=== PATIENT | male | born 1970 | race Caucasian/White ===

== ENCOUNTER 2019-10-26 21:54 | Inpatient (IN) | payer MEDICAID ==
[~2019-10-26] VITALS: Ht 180.3 cm; Wt 118.0 kg
[2019-10-26] MEDS ORDERED: FENTANYL-0.9 % NACL/PF 100 ML IV PRN (22:12)
[2019-10-26] MEDS: normal saline 1000ml 1,000 ML IV SCH (22:37)
[2019-10-26] MEDS: midazolam 100mg in NS 100ml 100 ML IV PRN (22:38)
[2019-10-26] MEDS: propofol 1000mg/100ml bottle 100 ML IV SCH (22:38)
[2019-10-26] MEDS: FENTANYL-0.9 % NACL/PF 100 ML IV PRN (22:38)
[2019-10-26 22:41] LABS: ABG BASE EXCESS -11.5 mmol/L (-2.0-3.0); ABG HCO3 16.6 mmol/L (22.0-26.0); ABG OXYGEN SATURATION 93.1 % (95-98); ABG PCO2 (T) 44.6 mmHg (35.0-45.0); ABG PH (T) 7.186 (7.350-7.450); ABG PO2 (T) 84.2 mmHg (83-108); ALLEN'S TEST Modified; FCOHb 0.4 % (0.5-1.5); FMetHb 0.3 % (0.3-1.12); FO2Hb 92.4 % (94-100); PATIENT TEMPERATURE 36.6; PEEP 5 cm H2O; RESPIRATORY RATE 18 b/min; TIDAL VOLUME 500 mL; TOTAL HEMOGLOBIN 13.9 G/dl (14.0-17.9)
[2019-10-26] MEDS ORDERED: magnesium 2GM in 50ml NS 50 ML IV ONE (22:45)
--- NOTE | 2019-10-26 22:45 | NUR ---
pt danielle mauricio
--- NOTE | 2019-10-26 22:48 | NUR ---
bicycle repair technician at bedside
[2019-10-26 22:55] LABS: BASOPHILS % (AUTO) 0.2 % (0-1); EOSINOPHILS % (AUTO) 0 % (0-6); HEMATOCRIT 41.2 % (42.0-52.0); HEMOGLOBIN 13.7 g/dl (14.0-17.9); LYMPHOCYTES # (AUTO) 1.7 X10'3 (1.1-4.8); LYMPHOCYTES % (AUTO) 14.5 % (21-51); MEAN CORPUSCULAR HEMOGLOBIN 34.5 PG (27.0-31.0); MEAN CORPUSCULAR HGB CONC 33.2 g/dL (33.0-36.5); MEAN PLATELET VOLUME 9.3 FL (7.4-10.4); MONOCYTES # (AUTO) 0.6 X10'3 (0-0.9); NEUTROPHILS # (AUTO) 9.5 X10'3 (1.8-7.7); NEUTROPHILS % (AUTO) 80.3 % (42-75); PLATELET COUNT 102 X10'3 (140-440); RED BLOOD COUNT 3.97 X10'6 (4.70-6.10); RED CELL DISTRIBUTION WIDTH 15.6 % (11.5-14.5); WHITE BLOOD COUNT 11.8 X10'3 (4.5-11.0)
[2019-10-26 23:01] LABS: PARTIAL THROMBOPLASTIN TIME 42 SECONDS (22-32)
[2019-10-26 23:12] LABS: ALBUMIN 3.1 G/DL (3.4-5.0); ALBUMIN/GLOBULIN RATIO 1.2 (1.1-1.5); ALKALINE PHOSPHATASE 44 IU/L (46-116); ANION GAP 15 (8-16); BILIRUBIN,TOTAL 3.6 MG/DL (0.1-1.0); BLOOD UREA NITROGEN 100 MG/DL (7-18); BUN/CREATININE RATIO 20.2 (5.4-32.0); CALCIUM 7.4 MG/DL (8.5-10.1); CHLORIDE 97 MMOL/L (99-107); CREATININE 4.95 MG/DL (0.60-1.10); GLUCOSE 126 MG/DL (70-104); POTASSIUM 3.8 MMOL/L (3.5-5.1); SODIUM 135 MMOL/L (135-145); TOTAL CARBON DIOXIDE 22.7 MMOL/L (24-32); TOTAL PROTEIN 5.7 G/DL (6.4-8.2); eGFR 13 ML/MIN
[2019-10-26 23:14] LABS: ETHANOL < 0.010 GM/DL (0.0-0.010); LIPASE 79 U/L (73-393); MAGNESIUM 2.4 MG/DL (1.5-2.4)
[2019-10-26 23:23] LABS: ALANINE AMINOTRANSFERASE 2030 U/L (12-78); ASPARTATE AMINO TRANSFERASE 1959 U/L (10-37)
--- NOTE | 2019-10-26 23:23 | NUR ---
150mcg of fentanyl wasted to clear the line as it had backed up with blood.
[2019-10-26] MEDS ORDERED: NO HOME MEDS (23:45)
[2019-10-26 23:49] LABS: CLARITY,URINE CLOUDY (Clear); COLOR,URINE YELLOW (Yellow); GLUCOSE, URINE NEGATIVE (Neg); KETONES,URINE NEGATIVE (Neg); LEUKOCYTE ESTERASE ,URINE NEGATIVE (Neg); NITRITES, URINE NEGATIVE (Neg); OCCULT BLOOD,URINE LARGE (Neg); PROTEIN,URINE 100 mg/dl (Neg); UROBILINOGEN,URINE 0.2 E.U/dL (0.2-1.0)
[2019-10-26 23:55] LABS: UA COLLECTION TYPE NON-SPECIFIED
[2019-10-26 23:57] LABS: BACTERIA,URINE FEW /HPF (Neg); HYALINE CASTS 0-3 /LPF (NEGATIVE); MUCUS STRANDS FEW /LPF (Neg); RBC,URINE 20-50 /HPF (0-2); SQUAMOUS EPITHELIAL CELL,UR FEW /LPF (FEW); WBC,URINE 0-4 /HPF (0-4)
[2019-10-27] VITALS (21 sets, daily range): BP systolic 104–177; BP diastolic 71–116
[2019-10-27 00:03] LABS: ANISOCYTOSIS 1+; NUCLEATED RED BLOOD CELLS 18 /100WBC (0-0); PLATELET ESTIMATE DECREASED; TOTAL CELLS COUNTED 100
[2019-10-27 00:04] LABS: POLYCHROMASIA 1+
[2019-10-27 00:04] LABS: URINE AMPHETAMINE SCREEN NEGATIVE (Neg); URINE BARBITUATE SCREEN NEGATIVE (Neg); URINE BENZODIAZEPINES SCREEN POSITIVE (Neg); URINE CANNABINOID SCREEN POSITIVE (Neg); URINE COCAINE SCREEN NEGATIVE (Neg); URINE METHADONE SCREEN NEGATIVE (Neg); URINE OPIATE SCREEN NEGATIVE (Neg); URINE PHENCYCLIDINE SCREEN NEGATIVE (Neg)
[2019-10-27] MEDS ORDERED: FENTANYL-0.9 % NACL/PF 100 ML IV PRN (00:08)
[2019-10-27] MEDS ORDERED: midazolam 100mg in NS 100ml 100 ML IV PRN (00:08)
--- NOTE | 2019-10-27 00:08 | NUR ---
spoke to the , encouraged her to come here. She is 2 hrs away, has 3 small children 8, 5, and 2. They just moved here from [place]. Instructed her to call family and friends and see if something could be arranged. She will call me back.
[2019-10-27] MEDS: K, MAG and/or Phos replacement - Verify level? MC SCH ×2 (00:10→08:00)
[2019-10-27] MEDS ORDERED: morphine 2 MG/ML inj. syringe IV PRN (00:10)
[2019-10-27] MEDS ORDERED: magnesium hydroxide 30ml (MOM) UD suspension PO PRN (00:10)
[2019-10-27] MEDS ORDERED: potassium Cl 20 mEq SR tablet PO PRN ×2 (00:10)
[2019-10-27] MEDS ORDERED: morphine 4 MG/ML inj SYRINge IV PRN (00:10)
[2019-10-27] MEDS ORDERED: acetaminophen 325mg tablet PO PRN ×2 (00:10)
--- NOTE | 2019-10-27 00:33 | NUR ---
when I spoke to the I explained to that the MD was discussing the possibility of administering a medication called TPA and explained to her what the medicine does and the risks and benefits of the medication. She informed me to "do what you need to do, you are the professionals."
--- NOTE | 2019-10-27 00:33 | NUR ---
HER SON FROM [place] WHO IS 21 WILL BE COMING UP TOMORROW EVENING. SO SHE WONT BE ABLE TO COME UNTIL THE EVENING TOMORROW.
[2019-10-27] MEDS ORDERED: tPA-cathflo 2mg/2ml IV flush 4 MG in normal saline 100ml IV soln 100 ML ICATH SCH (00:50)
--- NOTE | 2019-10-27 00:57 | NUR ---
I spoke to the , I called her, and I put the call through to Dr Dillon
[2019-10-27 01:01] LABS: OXYGEN SATURATION (MIXED VEN) 65.7 % (60-80); PO2 MIXED VENOUS (TEMP COR) 42.1 mmHg (35-46)
[2019-10-27] MEDS: normal saline 1000ml 1,000 ML IV SCH ×4 (01:03→13:28)
--- NOTE | 2019-10-27 01:45 | NUR ---
All the venous access sites and francis site are free from any bleeding.
--- NOTE | 2019-10-27 01:57 | NUR ---
Dr Herrmann aware of troponin and LA and he will order dobutamine. He came to BS to check on the pt. Dr Herrmann made aware of no UOP, and that the TPA was started at 0130.
[2019-10-27] MEDS ORDERED: DOBUTamine-DoBUTrex 500mg/D5W 250 ML IV PRN (02:00)
--- NOTE | 2019-10-27 02:04 | NUR ---
lab called and said he ran flu swab x 2 and is now going to be sending it over to [facility].
[2019-10-27] MEDS: propofol 1000mg/100ml bottle 100 ML IV SCH (02:17)
[2019-10-27] MEDS ORDERED: adenosine 3mg/ml 2ml vial IV ONE (03:00)
--- NOTE | 2019-10-27 05:37 | NUR ---
0330..Assessment as noted.
--- NOTE | 2019-10-27 05:37 | NUR ---
0300..Patient in room CICU 2008. I have received report from PREPARED FOODS ASSOCIATE and had the opportunity to ask questions and assume patient care.
--- NOTE | 2019-10-27 05:46 | NUR ---
0345..Unable to complete pt admission interviews at this time due to pt condition, and no family present.
--- NOTE | 2019-10-27 06:25 | NUR ---
0625..Problems reprioritized. Patient report given, questions answered & plan of care reviewed with Ivan HERNANDEZ.
[2019-10-27 07:33] LABS: BASOPHILS % (AUTO) 0.1 % (0-1); EOSINOPHILS % (AUTO) 0 % (0-6); HEMATOCRIT 41.2 % (42.0-52.0); HEMOGLOBIN 13.8 g/dl (14.0-17.9); LYMPHOCYTES # (AUTO) 1.1 X10'3 (1.1-4.8); LYMPHOCYTES % (AUTO) 10.3 % (21-51); MEAN CORPUSCULAR HEMOGLOBIN 34.3 PG (27.0-31.0); MEAN CORPUSCULAR HGB CONC 33.6 g/dL (33.0-36.5); MEAN CORPUSCULAR VOLUME 102.3 FL (78-98); MONOCYTES # (AUTO) 0.5 X10'3 (0-0.9); MONOCYTES % (AUTO) 4.8 % (2-12); NEUTROPHILS # (AUTO) 9.4 X10'3 (1.8-7.7); NEUTROPHILS % (AUTO) 84.8 % (42-75); PLATELET COUNT 78 X10'3 (140-440); RED BLOOD COUNT 4.03 X10'6 (4.70-6.10); RED CELL DISTRIBUTION WIDTH 15.5 % (11.5-14.5); WHITE BLOOD COUNT 11.1 X10'3 (4.5-11.0)
--- NOTE | 2019-10-27 07:40 | NUR ---
Patient converted to afib from SR and is hypertensive 200/100. report given to Dr Kiran; orders to stop dobutamine
[2019-10-27 07:58] LABS: ANISOCYTOSIS 1+; NUCLEATED RED BLOOD CELLS 18 /100WBC (0-0); PLATELET ESTIMATE DECREASED; POLYCHROMASIA 1+; TOTAL CELLS COUNTED 100
[2019-10-27] MEDS ORDERED: rocuronium 10mg/ml inj IV ONE ×2 (08:00→15:00)
[2019-10-27 08:06] LABS: ABG BASE EXCESS -7.8 mmol/L (-2.0-3.0); ABG HCO3 16.9 mmol/L (22.0-26.0); ABG OXYGEN SATURATION 94.7 % (95-98); ABG PCO2 (T) 32.5 mmHg (35.0-45.0); ABG PH (T) 7.334 (7.350-7.450); ABG PO2 (T) 80.9 mmHg (83-108); FCOHb 0.2 % (0.5-1.5); FMetHb 0.2 % (0.3-1.12); FO2Hb 94.3 % (94-100); PEEP 5 cm H2O; RESPIRATORY RATE 22 b/min; TIDAL VOLUME 400 mL; TOTAL HEMOGLOBIN 14.6 G/dl (14.0-17.9)
[2019-10-27 08:06] LABS: ALBUMIN 3.2 G/DL (3.4-5.0); ALBUMIN/GLOBULIN RATIO 1.2 (1.1-1.5); ALKALINE PHOSPHATASE 45 IU/L (46-116); ANION GAP 17 (8-16); BILIRUBIN,TOTAL 3.5 MG/DL (0.1-1.0); BLOOD UREA NITROGEN 104 MG/DL (7-18); BUN/CREATININE RATIO 19.7 (5.4-32.0); CALCIUM 7.7 MG/DL (8.5-10.1); CHLORIDE 96 MMOL/L (99-107); CREATININE 5.29 MG/DL (0.60-1.10); GLUCOSE 88 MG/DL (70-104); POTASSIUM 3.8 MMOL/L (3.5-5.1); SODIUM 134 MMOL/L (135-145); TOTAL CARBON DIOXIDE 20.7 MMOL/L (24-32); TOTAL PROTEIN 5.8 G/DL (6.4-8.2); eGFR 12 ML/MIN
[2019-10-27 08:27] LABS: ALANINE AMINOTRANSFERASE 2306 U/L (12-78); ASPARTATE AMINO TRANSFERASE 2213 U/L (10-37)
[2019-10-27] MEDS ORDERED: carvedilol 6.25mg tablet PO SCH (08:30)
[2019-10-27] MEDS ORDERED: amLODIPine 5mg tablet PO SCH (08:30)
[2019-10-27] MEDS: pantoprazole 40 MG vial IV SCH (08:36)
[2019-10-27 08:50] LABS: TROPONIN I 8.17 NG/ML (0.0-0.05)
--- NOTE | 2019-10-27 08:51 | NUR ---
critical lab value received: Troponin of 8.17; Kayode HERNANDEZ aware.
--- NOTE | 2019-10-27 09:00 | NUR ---
Troponin trending up. Reported to
[2019-10-27] MEDS: FENTANYL-0.9 % NACL/PF 100 ML IV PRN (09:20)
[2019-10-27] MEDS ORDERED: magnesium hydroxide 30ml (MOM) UD suspension OGT PRN (11:37)
[2019-10-27] MEDS ORDERED: heparin 25,000 UNIT/250ml bag 250 ML IV SCH (11:41)
[2019-10-27] MEDS ORDERED: heparin 10,000 units/1 ML INJ IV ONE (11:45)
--- NOTE | 2019-10-27 11:59 | NUR ---
Tube feeding consult. Patient is intubated and sedated presenting to ED with cardiogenic shock, transport from [place] with bilateral pneumonia, multiple bilateral PEs, tachycardia per MD note. History of EtOH 6-8 beers per day. Using patient's adjusted IBW d/t obesity to calculate estimated nutrition needs on vent, recommend Vital High Protein at 95 ml/hr. Will continue to follow. Recommend: 1. continuous tube feeding with Vital High Protein at goal rate 95 ml/hr will provide total volume 2280 ml, 2280 cals, 200 g protein, and 1915 ml free water. 2. Any additional water flush per Machine Driller, per MD not to overload with fluids 3. Daily weight 4. Prealbumin q wednesday and Addendum: 10/27/19 at [address] Amended: Links added.
[2019-10-27 13:03] LABS: PARTIAL THROMBOPLASTIN TIME 39 SECONDS (22-32)
--- NOTE | 2019-10-27 14:01 | NUR ---
ordered labs per protocol for heparin infusion. Called MD to notify of abnormal lab values per protocol. MD confirmed to start heparin drip
[2019-10-27] MEDS: heparin 25,000 UNIT/250ml bag 250 ML IV SCH (14:15)
[2019-10-27] MEDS: midazolam 100mg in NS 100ml 100 ML IV PRN (15:25)
[2019-10-27 16:10] LABS: BASOPHILS % (AUTO) 0.2 % (0-1); EOSINOPHILS % (AUTO) 0.1 % (0-6); HEMATOCRIT 40.4 % (42.0-52.0); HEMOGLOBIN 13.7 g/dl (14.0-17.9); LYMPHOCYTES # (AUTO) 1.7 X10'3 (1.1-4.8); LYMPHOCYTES % (AUTO) 15.8 % (21-51); MEAN CORPUSCULAR HEMOGLOBIN 34.3 PG (27.0-31.0); MEAN CORPUSCULAR HGB CONC 33.8 g/dL (33.0-36.5); MEAN CORPUSCULAR VOLUME 101.5 FL (78-98); MEAN PLATELET VOLUME 8.9 FL (7.4-10.4); MONOCYTES # (AUTO) 0.4 X10'3 (0-0.9); MONOCYTES % (AUTO) 4.2 % (2-12); NEUTROPHILS # (AUTO) 8.5 X10'3 (1.8-7.7); NEUTROPHILS % (AUTO) 79.7 % (42-75); PLATELET COUNT 76 X10'3 (140-440); RED BLOOD COUNT 3.99 X10'6 (4.70-6.10); RED CELL DISTRIBUTION WIDTH 15.7 % (11.5-14.5); WHITE BLOOD COUNT 10.6 X10'3 (4.5-11.0)
[2019-10-27 16:40] LABS: ALBUMIN 2.8 G/DL (3.4-5.0); ALBUMIN/GLOBULIN RATIO 1.1 (1.1-1.5); ALKALINE PHOSPHATASE 47 IU/L (46-116); ANION GAP 15 (8-16); BILIRUBIN,TOTAL 3.6 MG/DL (0.1-1.0); BLOOD UREA NITROGEN 104 MG/DL (7-18); BUN/CREATININE RATIO 19.5 (5.4-32.0); CALCIUM 7.7 MG/DL (8.5-10.1); CHLORIDE 99 MMOL/L (99-107); CREATININE 5.32 MG/DL (0.60-1.10); GLUCOSE 85 MG/DL (70-104); MAGNESIUM 2.7 MG/DL (1.5-2.4); POTASSIUM 3.4 MMOL/L (3.5-5.1); SODIUM 135 MMOL/L (135-145); TOTAL CARBON DIOXIDE 20.8 MMOL/L (24-32); TOTAL PROTEIN 5.4 G/DL (6.4-8.2); eGFR 12 ML/MIN
[2019-10-27 16:41] LABS: ALANINE AMINOTRANSFERASE 1868 U/L (12-78); ASPARTATE AMINO TRANSFERASE 1370 U/L (10-37)
[2019-10-27 16:42] LABS: TROPONIN I 6.91 NG/ML (0.0-0.05)
--- NOTE | 2019-10-27 17:08 | NUR ---
Troponin trending down. Lab results and EKG changes reported to .
--- NOTE | 2019-10-27 17:12 | NUR ---
ABG ordered; RT notified
[2019-10-27 17:30] LABS: ABG BASE EXCESS -4.8 mmol/L (-2.0-3.0); ABG HCO3 19.7 mmol/L (22.0-26.0); ABG OXYGEN SATURATION 95.1 % (95-98); ABG PH (T) 7.368 (7.350-7.450); ABG PO2 (T) 81.6 mmHg (83-108); ALLEN'S TEST POSITIVE; FCOHb 0.4 % (0.5-1.5); FMetHb 0.2 % (0.3-1.12); FO2Hb 94.5 % (94-100); RESPIRATORY RATE 22 b/min; TIDAL VOLUME 500 mL; TOTAL HEMOGLOBIN 14.5 G/dl (14.0-17.9)
[2019-10-27] MEDS: POTASSIUM BICARB 20meq eff tab 20 MEQ TABLET.EFF OGT PRN ×2 (17:57→23:14)
--- NOTE | 2019-10-27 18:30 | NUR ---
Patient in room CICU 2008. I have received report from DOUGLAS HERNANDEZ and had the opportunity to ask questions and assume patient care.
[2019-10-27] MEDS: carvedilol 6.25mg tablet OGT SCH (20:11)
--- NOTE | 2019-10-27 22:21 | NUR ---
pt PTT came back therapeutic 55, no change to rate - remains at 1000 units. pt spontaneously started overbreathing the vent, peak pressuring, no receiving as great of volumes, desaturated to low 80s. pt was suctioned with minimal output. RT paged. seems that pt is requiring more sedation, increased dose. RT increased FiO2 to 60% for now. cont to monitor
[2019-10-28] VITALS (24 sets, daily range): BP systolic 94–122; BP diastolic 58–88
--- NOTE | 2019-10-28 01:00 | NUR ---
pt appears more comfortable on the ventilator with improved sats, RT decreased FiO2 to 40%
[2019-10-28] MEDS: mineral oil/petrolatum ophthal oint EACHEYE SCH ×4 (02:13→20:06)
[2019-10-28] MEDS: normal saline 1000ml 1,000 ML IV SCH ×2 (02:14→16:18)
[2019-10-28 02:42] LABS: BASOPHILS % (AUTO) 0.3 % (0-1); EOSINOPHILS % (AUTO) 0.5 % (0-6); HEMATOCRIT 40.4 % (42.0-52.0); HEMOGLOBIN 13.7 g/dl (14.0-17.9); LYMPHOCYTES # (AUTO) 0.9 X10'3 (1.1-4.8); LYMPHOCYTES % (AUTO) 12.5 % (21-51); MEAN CORPUSCULAR HEMOGLOBIN 34.3 PG (27.0-31.0); MEAN CORPUSCULAR HGB CONC 33.9 g/dL (33.0-36.5); MEAN CORPUSCULAR VOLUME 101.3 FL (78-98); MEAN PLATELET VOLUME 9.6 FL (7.4-10.4); MONOCYTES # (AUTO) 0.3 X10'3 (0-0.9); MONOCYTES % (AUTO) 4.5 % (2-12); NEUTROPHILS # (AUTO) 5.8 X10'3 (1.8-7.7); NEUTROPHILS % (AUTO) 82.2 % (42-75); PLATELET COUNT 73 X10'3 (140-440); RED BLOOD COUNT 3.99 X10'6 (4.70-6.10); RED CELL DISTRIBUTION WIDTH 15.4 % (11.5-14.5); WHITE BLOOD COUNT 7.1 X10'3 (4.5-11.0)
[2019-10-28 02:58] LABS: ALBUMIN 2.7 G/DL (3.4-5.0); ALBUMIN/GLOBULIN RATIO 1.1 (1.1-1.5); ALKALINE PHOSPHATASE 47 IU/L (46-116); ANION GAP 12 (8-16); ASPARTATE AMINO TRANSFERASE 821 U/L (10-37); BILIRUBIN,TOTAL 3.7 MG/DL (0.1-1.0); BLOOD UREA NITROGEN 100 MG/DL (7-18); CALCIUM 7.8 MG/DL (8.5-10.1); CHLORIDE 102 MMOL/L (99-107); CREATININE 4.77 MG/DL (0.60-1.10); GLUCOSE 86 MG/DL (70-104); MAGNESIUM 2.8 MG/DL (1.5-2.4); PHOSPHORUS 5.1 MG/DL (2.3-4.5); POTASSIUM 3.3 MMOL/L (3.5-5.1); SODIUM 138 MMOL/L (135-145); TOTAL PROTEIN 5.2 G/DL (6.4-8.2); eGFR 13 ML/MIN
[2019-10-28 02:59] LABS: ALANINE AMINOTRANSFERASE 1718 U/L (12-78)
--- NOTE | 2019-10-28 03:06 | NUR ---
cardiac PTT 50, therapeutic range. drip remains at 1000 units per hour
[2019-10-28 03:30] LABS: ANISOCYTOSIS 1+; PLATELET ESTIMATE DECREASED; POLYCHROMASIA 1+
[2019-10-28 04:06] LABS: ABG HCO3 16.4 mmol/L (22.0-26.0); ABG OXYGEN SATURATION 92.7 % (95-98); ABG PCO2 (T) 26.9 mmHg (35.0-45.0); ABG PH (T) 7.401 (7.350-7.450); ABG PO2 (T) 65.3 mmHg (83-108); ALLEN'S TEST POSITIVE; FCOHb 0.7 % (0.5-1.5); FMetHb 0.1 % (0.3-1.12); PATIENT TEMPERATURE 36.4; RESPIRATORY RATE 22 b/min; TIDAL VOLUME 500 mL; TOTAL HEMOGLOBIN 13.7 G/dl (14.0-17.9)
[2019-10-28] MEDS: FENTANYL-0.9 % NACL/PF 100 ML IV PRN (04:31)
[2019-10-28] MEDS: POTASSIUM BICARB 20meq eff tab 20 MEQ TABLET.EFF OGT PRN ×4 (04:31→20:06)
--- NOTE | 2019-10-28 05:06 | NUR ---
called Alize REDDING to report pt ST depression is showing lower on monitor, same leads as EKG showed in the afternoon. pt is already on a cardiac heparin gtt. received order for add on troponin to AM labs and AM EKG
[2019-10-28 05:31] LABS: TROPONIN I 5.06 NG/ML (0.0-0.05)
[2019-10-28] MEDS: midazolam 100mg in NS 100ml 100 ML IV PRN (05:42)
[2019-10-28] MEDS: amLODIPine 5mg tablet OGT SCH (08:00)
[2019-10-28] MEDS: carvedilol 6.25mg tablet OGT SCH ×2 (08:00→20:06)
[2019-10-28] MEDS: K, MAG and/or Phos replacement - Verify level? MC SCH (08:00)
--- NOTE | 2019-10-28 08:57 | NUR ---
Patient presenting with stoke like symptoms, flacid on right, and decorticate posturing on right arm to painful stimulation. Charge nurse notified and at bedside to assess patient with me. Sedation stopped, but patient became unstable; Peak pressuring, low volumes, rapid RR, and desaturating. Sedation restarted. Charge nurse called PA; orders for CT head. Also spoke with field operations supervisor stroke nurse who advised that this is not a stroke alert, and agreed with CT head. Family notified of changes.
[2019-10-28] MEDS: pantoprazole 40 MG vial IV SCH (10:08)
[2019-10-28] MEDS: aspirin 81mg tablet.DR PO SCH (10:11)
[2019-10-28] MEDS: heparin 10,000 units/1 ML INJ IV PRN (11:45)
[2019-10-28] MEDS: heparin 25,000 UNIT/250ml bag 250 ML IV SCH ×3 (11:47→18:31)
--- NOTE | 2019-10-28 16:18 | NUR ---
tube feed increased to 80 per orders
--- NOTE | 2019-10-28 18:30 | NUR ---
Patient in room CICU 2008. I have received report from DOUGLAS HERNANDEZ and had the opportunity to ask questions and assume patient care.
--- NOTE | 2019-10-28 18:32 | NUR ---
cardiac PTT result 71, decreased heparin gtt 1unit per protocol with cosigner
[2019-10-29] VITALS (24 sets, daily range): BP systolic 100–123; BP diastolic 54–86
--- NOTE | 2019-10-29 01:10 | NUR ---
cardiac PTT in therapeutic range, 58. no changes to rate
[2019-10-29] MEDS: POTASSIUM BICARB 20meq eff tab 20 MEQ TABLET.EFF OGT PRN ×4 (02:23→16:23)
[2019-10-29] MEDS: mineral oil/petrolatum ophthal oint EACHEYE SCH ×4 (02:23→20:45)
[2019-10-29 03:30] LABS: ABG BASE EXCESS 3.7 mmol/L (-2.0-3.0); ABG HCO3 26.1 mmol/L (22.0-26.0); ABG OXYGEN SATURATION 93.6 % (95-98); ABG PCO2 (T) 32.9 mmHg (35.0-45.0); ABG PH (T) 7.518 (7.350-7.450); ABG PO2 (T) 63.4 mmHg (83-108); ALLEN'S TEST POSITIVE; FCOHb 0.4 % (0.5-1.5); FMetHb 0.1 % (0.3-1.12); FO2Hb 93.1 % (94-100); RESPIRATORY RATE 22 b/min; TIDAL VOLUME 500 mL; TOTAL HEMOGLOBIN 14.4 G/dl (14.0-17.9)
[2019-10-29] MEDS: normal saline 1000ml 1,000 ML IV SCH ×2 (04:28→18:48)
[2019-10-29 04:39] LABS: BASOPHILS % (AUTO) 0.3 % (0-1); EOSINOPHILS % (AUTO) 0.9 % (0-6); HEMOGLOBIN 13.9 g/dl (14.0-17.9); LYMPHOCYTES # (AUTO) 0.6 X10'3 (1.1-4.8); LYMPHOCYTES % (AUTO) 9.9 % (21-51); MEAN CORPUSCULAR HEMOGLOBIN 34.3 PG (27.0-31.0); MEAN CORPUSCULAR HGB CONC 33.9 g/dL (33.0-36.5); MEAN CORPUSCULAR VOLUME 101.2 FL (78-98); MEAN PLATELET VOLUME 9.7 FL (7.4-10.4); MONOCYTES # (AUTO) 0.4 X10'3 (0-0.9); MONOCYTES % (AUTO) 7.7 % (2-12); NEUTROPHILS # (AUTO) 4.7 X10'3 (1.8-7.7); NEUTROPHILS % (AUTO) 81.2 % (42-75); PLATELET COUNT 66 X10'3 (140-440); RED BLOOD COUNT 4.05 X10'6 (4.70-6.10); RED CELL DISTRIBUTION WIDTH 15.7 % (11.5-14.5); WHITE BLOOD COUNT 5.7 X10'3 (4.5-11.0)
[2019-10-29 05:01] LABS: ALBUMIN 2.5 G/DL (3.4-5.0); ALKALINE PHOSPHATASE 62 IU/L (46-116); ANION GAP 6 (8-16); ASPARTATE AMINO TRANSFERASE 395 U/L (10-37); BLOOD UREA NITROGEN 73 MG/DL (7-18); BUN/CREATININE RATIO 24.5 (5.4-32.0); CALCIUM 8.1 MG/DL (8.5-10.1); CHLORIDE 107 MMOL/L (99-107); CREATININE 2.98 MG/DL (0.60-1.10); GLUCOSE 109 MG/DL (70-104); MAGNESIUM 2.3 MG/DL (1.5-2.4); POTASSIUM 3.2 MMOL/L (3.5-5.1); SODIUM 141 MMOL/L (135-145); TOTAL CARBON DIOXIDE 27.6 MMOL/L (24-32); eGFR 23 ML/MIN
[2019-10-29 05:03] LABS: ALANINE AMINOTRANSFERASE 1155 U/L (12-78)
--- NOTE | 2019-10-29 05:34 | NUR ---
lab called to report critical phos then called back and said there was some sort of error..waiting for further info Addendum: 10/29/19 at 0622 by Alana Garcia RN lito arreola, result is accurate now and not critical
[2019-10-29 05:46] LABS: ALBUMIN/GLOBULIN RATIO 0.8 (1.1-1.5); PHOSPHORUS 2.4 MG/DL (2.3-4.5); TOTAL PROTEIN 5.7 G/DL (6.4-8.2)
--- NOTE | 2019-10-29 06:15 | NUR ---
Problems reprioritized. Patient report given, questions answered & plan of care reviewed with JERMAINE HERNANDEZ.
[2019-10-29] MEDS: aspirin 81mg tablet.DR PO SCH (07:38)
[2019-10-29] MEDS: amLODIPine 5mg tablet OGT SCH (07:38)
[2019-10-29] MEDS: carvedilol 6.25mg tablet OGT SCH ×2 (07:38→20:44)
[2019-10-29] MEDS: K, MAG and/or Phos replacement - Verify level? MC SCH (07:39)
[2019-10-29] MEDS: pantoprazole 40 MG vial IV SCH (07:39)
[2019-10-29] MEDS: FENTANYL-0.9 % NACL/PF 100 ML IV PRN (11:57)
--- NOTE | 2019-10-29 18:20 | NUR ---
Problems reprioritized. Patient report given, questions answered & plan of care reviewed with Maribel HERNANDEZ.
--- NOTE | 2019-10-29 18:25 | NUR ---
Patient in room CICU 2008. I have received report from Liana HERNANDEZ and had the opportunity to ask questions and assume patient care. Patient in bed, intubated via endotracheal tube, on vent with Fio2 at 50% and PEEP 5, spo2 at 97%, on Fentanyl drip for pain control, Heparin drip and Normal saline infusing per provider orders, see IV spreadsheet for further information. All monitoring alarms audible. See interventions and EMR for further information. Will continue to monitor.
[2019-10-30] VITALS (23 sets, daily range): BP systolic 95–155; BP diastolic 73–102
--- NOTE | 2019-10-30 | NUR ---
Patient slightly moves right arm very minimal ROM and strength, Left arm continues with good ROM and strength.
[2019-10-30] MEDS: mineral oil/petrolatum ophthal oint EACHEYE SCH ×4 (01:36→20:37)
[2019-10-30] MEDS: heparin 10,000 units/1 ML INJ IV PRN ×2 (01:39→21:53)
[2019-10-30 03:50] LABS: ABG BASE EXCESS 3.2 mmol/L (-2.0-3.0); ABG HCO3 27.4 mmol/L (22.0-26.0); ABG OXYGEN SATURATION 95.8 % (95-98); ABG PCO2 (T) 41.3 mmHg (35.0-45.0); ABG PH (T) 7.441 (7.350-7.450); ABG PO2 (T) 78.9 mmHg (83-108); ALLEN'S TEST POSITIVE; FCOHb 0.7 % (0.5-1.5); FMetHb 0.3 % (0.3-1.12); FO2Hb 94.8 % (94-100); PATIENT TEMPERATURE 37.7
[2019-10-30] MEDS: normal saline 1000ml 1,000 ML IV SCH (03:54)
[2019-10-30 04:37] LABS: BASOPHILS % (AUTO) 0.2 % (0-1); EOSINOPHILS # (AUTO) 0.1 X10'3 (0-0.9); EOSINOPHILS % (AUTO) 1.3 % (0-6); HEMATOCRIT 40.8 % (42.0-52.0); HEMOGLOBIN 13.8 g/dl (14.0-17.9); LYMPHOCYTES # (AUTO) 0.7 X10'3 (1.1-4.8); LYMPHOCYTES % (AUTO) 11.5 % (21-51); MEAN CORPUSCULAR HEMOGLOBIN 34.5 PG (27.0-31.0); MEAN CORPUSCULAR HGB CONC 33.7 g/dL (33.0-36.5); MEAN CORPUSCULAR VOLUME 102.3 FL (78-98); MEAN PLATELET VOLUME 9.9 FL (7.4-10.4); MONOCYTES # (AUTO) 0.6 X10'3 (0-0.9); MONOCYTES % (AUTO) 10.9 % (2-12); NEUTROPHILS # (AUTO) 4.4 X10'3 (1.8-7.7); NEUTROPHILS % (AUTO) 76.1 % (42-75); PLATELET COUNT 67 X10'3 (140-440); RED BLOOD COUNT 3.99 X10'6 (4.70-6.10); RED CELL DISTRIBUTION WIDTH 16.2 % (11.5-14.5); WHITE BLOOD COUNT 5.9 X10'3 (4.5-11.0)
[2019-10-30 04:47] LABS: ALANINE AMINOTRANSFERASE 772 U/L (12-78); ALBUMIN 2.3 G/DL (3.4-5.0); ALBUMIN/GLOBULIN RATIO 0.7 (1.1-1.5); ALKALINE PHOSPHATASE 65 IU/L (46-116); ANION GAP 4 (8-16); ASPARTATE AMINO TRANSFERASE 279 U/L (10-37); BILIRUBIN,TOTAL 3.2 MG/DL (0.1-1.0); BLOOD UREA NITROGEN 54 MG/DL (7-18); BUN/CREATININE RATIO 26.6 (5.4-32.0); CALCIUM 8.2 MG/DL (8.5-10.1); CHLORIDE 111 MMOL/L (99-107); CREATININE 2.03 MG/DL (0.60-1.10); GLUCOSE 109 MG/DL (70-104); PHOSPHORUS 2.4 MG/DL (2.3-4.5); POTASSIUM 3.4 MMOL/L (3.5-5.1); PREALBUMIN 10.4 MG/DL (19-36); SODIUM 147 MMOL/L (135-145); TOTAL CARBON DIOXIDE 31.7 MMOL/L (24-32); TOTAL PROTEIN 5.4 G/DL (6.4-8.2); eGFR 35 ML/MIN
--- NOTE | 2019-10-30 06:31 | NUR ---
Student documentation: I have reviewed and agree with all interventions, assessments performed and documented by Kristine HERNANDEZ. Student Medication Administration: For this medication-pass time frame, all medication were reviewed, dispensed, administered and documented per hospital policy by Kristine HERNANDEZ.
[2019-10-30] MEDS: pantoprazole 40 MG vial IV SCH (07:38)
[2019-10-30] MEDS: carvedilol 6.25mg tablet OGT SCH ×2 (07:38→20:20)
[2019-10-30] MEDS: amLODIPine 5mg tablet OGT SCH (07:38)
[2019-10-30] MEDS: aspirin 81mg tablet.DR PO SCH (07:38)
[2019-10-30] MEDS: K, MAG and/or Phos replacement - Verify level? MC SCH (08:00)
[2019-10-30] MEDS: heparin 25,000 UNIT/250ml bag 250 ML IV SCH (08:41)
[2019-10-30] MEDS: potassium Cl 20mEq/100mL bag 100 ML IV PRN ×2 (13:06→15:12)
--- NOTE | 2019-10-30 13:39 | NUR ---
Reassessment: Patient is intubated and sedated presenting to ED with cardiogenic shock, transport from [place] with bilateral pneumonia, multiple bilateral PEs, tachycardia per MD note. History of EtOH 6-8 beers per day. Using patient's adjusted IBW d/t obesity to calculate estimated nutrition needs on vent, recommend Vital High Protein at 95 ml/hr. Tolerating at goal rate with gastric residual volume up to 310 ml, per MD patient will be started on relistor today. Last BM was smear today. May need additional bowel care if unable to have adequate BM with relistor. Noted that sodium is increasing to 147 mg/dl today, has no water flush orders, will d/w Line Painting Machine Operator. Will continue to follow. Recommend: 1. continuous tube feeding with Vital High Protein at goal rate 95 ml/hr will provide total volume 2280 ml, 2280 cals, 200 g protein, and 1915 ml free water. 2. Additional water flush per Line Painting Machine Operator, sodium increasing to 147; will d/w MD 3. Daily weight 4. Prealbumin q wednesday and 5. Bowel care for bowel regularity, pt receiving fentanyl Addendum: 10/30/19 at [address] Amended: Links added.
[2019-10-30] MEDS: midazolam 100mg in NS 100ml 100 ML IV PRN (17:43)
--- NOTE | 2019-10-30 18:00 | NUR ---
Patient in room CICU 2008. I have received report from Luisa HERNANDEZ and had the opportunity to ask questions and assume patient care. The patient is on ventilator with Fi02 of 40%, PEEP of 5, Sp02 of 97. Fentanyl drip and Versed drip infusing for pain control and sedation. Heparin drip infusing, see IV Spreadsheet for further information. Vital signs are stable. See interventions for further information, will continue to monitor.
[2019-10-30] MEDS: methylnaltrexone br 12mg/0.6ml inj***SubQ only SQ SCH (20:20)
[2019-10-30] MEDS: FENTANYL-0.9 % NACL/PF 100 ML IV PRN (21:00)
[2019-10-31] VITALS (24 sets, daily range): BP systolic 104–149; BP diastolic 64–102
[2019-10-31] MEDS: mineral oil/petrolatum ophthal oint EACHEYE SCH ×4 (02:09→19:31)
--- NOTE | 2019-10-31 02:22 | NUR ---
10/31/19221 Note on: FRED DILLARD No change in condition. Patient stable.
[2019-10-31 04:19] LABS: BASOPHILS % (AUTO) 0.4 % (0-1); EOSINOPHILS # (AUTO) 0.2 X10'3 (0-0.9); EOSINOPHILS % (AUTO) 3.2 % (0-6); HEMATOCRIT 40.4 % (42.0-52.0); HEMOGLOBIN 13.6 g/dl (14.0-17.9); LYMPHOCYTES # (AUTO) 0.7 X10'3 (1.1-4.8); LYMPHOCYTES % (AUTO) 12.1 % (21-51); MEAN CORPUSCULAR HEMOGLOBIN 34.3 PG (27.0-31.0); MEAN CORPUSCULAR HGB CONC 33.6 g/dL (33.0-36.5); MEAN CORPUSCULAR VOLUME 102.1 FL (78-98); MEAN PLATELET VOLUME 10.3 FL (7.4-10.4); MONOCYTES # (AUTO) 0.8 X10'3 (0-0.9); MONOCYTES % (AUTO) 12.7 % (2-12); NEUTROPHILS # (AUTO) 4.3 X10'3 (1.8-7.7); NEUTROPHILS % (AUTO) 71.6 % (42-75); PLATELET COUNT 78 X10'3 (140-440); RED BLOOD COUNT 3.96 X10'6 (4.70-6.10)
[2019-10-31 04:35] LABS: ALANINE AMINOTRANSFERASE 619 U/L (12-78); ALBUMIN 2.3 G/DL (3.4-5.0); ALBUMIN/GLOBULIN RATIO 0.7 (1.1-1.5); ALKALINE PHOSPHATASE 55 IU/L (46-116); ANION GAP 4 (8-16); ASPARTATE AMINO TRANSFERASE 230 U/L (10-37); BILIRUBIN,TOTAL 2.3 MG/DL (0.1-1.0); BLOOD UREA NITROGEN 46 MG/DL (7-18); BUN/CREATININE RATIO 28.2 (5.4-32.0); CALCIUM 8.4 MG/DL (8.5-10.1); CHLORIDE 112 MMOL/L (99-107); CREATININE 1.63 MG/DL (0.60-1.10); GLUCOSE 96 MG/DL (70-104); MAGNESIUM 1.8 MG/DL (1.5-2.4); PHOSPHORUS 2.5 MG/DL (2.3-4.5); POTASSIUM 3.8 MMOL/L (3.5-5.1); SODIUM 148 MMOL/L (135-145); TOTAL CARBON DIOXIDE 32.3 MMOL/L (24-32); TOTAL PROTEIN 5.5 G/DL (6.4-8.2); eGFR 46 ML/MIN
[2019-10-31] MEDS: heparin 25,000 UNIT/250ml bag 250 ML IV SCH ×2 (05:00→19:32)
[2019-10-31 05:26] LABS: ABG BASE EXCESS 4.2 mmol/L (-2.0-3.0); ABG HCO3 28.5 mmol/L (22.0-26.0); ABG OXYGEN SATURATION 94.9 % (95-98); ABG PCO2 (T) 43.2 mmHg (35.0-45.0); ABG PH (T) 7.441 (7.350-7.450); ABG PO2 (T) 75.3 mmHg (83-108); ALLEN'S TEST POSITIVE; FCOHb 1.7 % (0.5-1.5); FMetHb 0.3 % (0.3-1.12); PATIENT TEMPERATURE 37.8; RESPIRATORY RATE 22 b/min; TIDAL VOLUME 500 mL; TOTAL HEMOGLOBIN 13.9 G/dl (14.0-17.9)
--- NOTE | 2019-10-31 06:31 | NUR ---
Problems reprioritized. Patient report given, questions answered & plan of care reviewed with Art RN.
[2019-10-31] MEDS: K, MAG and/or Phos replacement - Verify level? MC SCH (07:50)
[2019-10-31] MEDS: carvedilol 6.25mg tablet OGT SCH ×2 (07:54→19:36)
[2019-10-31] MEDS: amLODIPine 5mg tablet OGT SCH (07:54)
[2019-10-31] MEDS: pantoprazole 40 MG vial IV SCH (07:54)
[2019-10-31] MEDS: aspirin 81mg tablet.DR PO SCH (07:54)
--- NOTE | 2019-10-31 10:25 | NUR ---
Blood drawn for lab, auxiliary will deliver it.
[2019-10-31] MEDS: dextrose 5%-water 1,000 ML IV SCH (11:16)
--- NOTE | 2019-10-31 14:05 | NUR ---
Reassessment: Patient is intubated and sedated presenting to ED with cardiogenic shock, transport from [place] with bilateral pneumonia, multiple bilateral PEs, tachycardia per MD note. History of EtOH 6-8 beers per day. Using patient's adjusted IBW d/t obesity to calculate estimated nutrition needs on vent, recommend Vital High Protein at 95 ml/hr. Tolerating at goal rate with gastric residual volume up to 310 ml, per MD patient started on relistor yesterday. Last BM was smear today. May need additional bowel care if unable to have adequate BM with relistor. Noted that sodium is increasing to 148 mg/dl today, water flushes were ordered yesterday for patient at 250 ml q 4 hours and has been started on 5% dextrose per MD. Will continue to follow. Recommend: 1. continuous tube feeding with Vital High Protein at goal rate 95 ml/hr will provide total volume 2280 ml, 2280 cals, 200 g protein, and 1915 ml free water. 2. Additional water flush 250 ml q 4 hours per Jewelry Repairer order 3. Daily weight 4. Prealbumin q wednesday and 5. Bowel care for bowel regularity, pt receiving fentanyl Addendum: 10/31/19 at [address] Amended: Links added.
[2019-10-31] MEDS: ipratropium/albuterol 3ml nebule NEB PRN (15:29)
[2019-10-31] MEDS ORDERED: furosemide 10 MG/1 ML 10ml inj IV ONE (16:25)
[2019-10-31] MEDS: midazolam 100mg in NS 100ml 100 ML IV PRN (16:40)
--- NOTE | 2019-10-31 18:35 | NUR ---
Patient in room CICU 2008. I have received report from and had the opportunity to ask questions and assume patient care.
[2019-10-31] MEDS: furosemide 10 MG/1 ML 10ml inj IV SCH (19:36)
[2019-11-01] VITALS (24 sets, daily range): BP systolic 106–150; BP diastolic 66–97
[2019-11-01] MEDS: mineral oil/petrolatum ophthal oint EACHEYE SCH ×4 (02:48→20:45)
[2019-11-01 03:26] LABS: ABG BASE EXCESS 5.3 mmol/L (-2.0-3.0); ABG HCO3 29.5 mmol/L (22.0-26.0); ABG OXYGEN SATURATION 92.4 % (95-98); ABG PH (T) 7.473 (7.350-7.450); ABG PO2 (T) 57.7 mmHg (83-108); ALLEN'S TEST POSITIVE; FMetHb 0.1 % (0.3-1.12); FO2Hb 91.4 % (94-100); PATIENT TEMPERATURE 36.8; TOTAL HEMOGLOBIN 14.3 G/dl (14.0-17.9)
[2019-11-01 04:28] LABS: BASOPHILS # (AUTO) 0.1 X10'3 (0-0.2); BASOPHILS % (AUTO) 0.8 % (0-1); EOSINOPHILS # (AUTO) 0.3 X10'3 (0-0.9); EOSINOPHILS % (AUTO) 4.7 % (0-6); HEMATOCRIT 41.2 % (42.0-52.0); HEMOGLOBIN 13.6 g/dl (14.0-17.9); LYMPHOCYTES # (AUTO) 0.9 X10'3 (1.1-4.8); LYMPHOCYTES % (AUTO) 14.6 % (21-51); MEAN CORPUSCULAR HEMOGLOBIN 33.9 PG (27.0-31.0); MEAN CORPUSCULAR HGB CONC 33.1 g/dL (33.0-36.5); MEAN CORPUSCULAR VOLUME 102.3 FL (78-98); MEAN PLATELET VOLUME 9.8 FL (7.4-10.4); MONOCYTES # (AUTO) 0.8 X10'3 (0-0.9); NEUTROPHILS # (AUTO) 4.1 X10'3 (1.8-7.7); NEUTROPHILS % (AUTO) 66.9 % (42-75); PLATELET COUNT 93 X10'3 (140-440); RED BLOOD COUNT 4.03 X10'6 (4.70-6.10); RED CELL DISTRIBUTION WIDTH 16.1 % (11.5-14.5); WHITE BLOOD COUNT 6.2 X10'3 (4.5-11.0)
[2019-11-01 04:43] LABS: ALANINE AMINOTRANSFERASE 469 U/L (12-78); ALBUMIN 2.3 G/DL (3.4-5.0); ALBUMIN/GLOBULIN RATIO 0.7 (1.1-1.5); ALKALINE PHOSPHATASE 54 IU/L (46-116); ANION GAP 3 (8-16); ASPARTATE AMINO TRANSFERASE 143 U/L (10-37); BLOOD UREA NITROGEN 45 MG/DL (7-18); BUN/CREATININE RATIO 26.6 (5.4-32.0); CALCIUM 8.2 MG/DL (8.5-10.1); CHLORIDE 106 MMOL/L (99-107); CREATININE 1.69 MG/DL (0.60-1.10); GLUCOSE 91 MG/DL (70-104); MAGNESIUM 1.5 MG/DL (1.5-2.4); PHOSPHORUS 2.7 MG/DL (2.3-4.5); POTASSIUM 3.2 MMOL/L (3.5-5.1); SODIUM 145 MMOL/L (135-145); TOTAL CARBON DIOXIDE 35.9 MMOL/L (24-32); TOTAL PROTEIN 5.7 G/DL (6.4-8.2); eGFR 44 ML/MIN
--- NOTE | 2019-11-01 06:35 | NUR ---
Problems reprioritized. Patient report given, questions answered & plan of care reviewed with Sally HERNANDEZ.
[2019-11-01 06:58] LABS: ANISOCYTOSIS 1+; PLATELET ESTIMATE DECREASED
[2019-11-01] MEDS: pantoprazole 40 MG vial IV SCH (07:37)
[2019-11-01] MEDS: amLODIPine 5mg tablet OGT SCH (07:38)
[2019-11-01] MEDS: aspirin 81mg tablet.DR PO SCH (07:38)
[2019-11-01] MEDS: methylnaltrexone br 12mg/0.6ml inj***SubQ only SQ SCH ×2 (07:38→08:00)
[2019-11-01] MEDS: furosemide 10 MG/1 ML 10ml inj IV SCH ×2 (07:39→20:46)
[2019-11-01] MEDS: ipratropium/albuterol 3ml nebule NEB PRN (07:55)
[2019-11-01] MEDS: potassium Cl 20mEq/100mL bag 100 ML IV PRN ×2 (07:57→10:26)
[2019-11-01] MEDS: carvedilol 6.25mg tablet OGT SCH ×2 (08:00→20:45)
[2019-11-01] MEDS: K, MAG and/or Phos replacement - Verify level? MC SCH (08:33)
[2019-11-01] MEDS: dextrose 5%-water 1,000 ML IV SCH (10:27)
[2019-11-01] MEDS: heparin 25,000 UNIT/250ml bag 250 ML IV SCH (11:40)
--- NOTE | 2019-11-01 11:57 | NUR ---
Reassessment: Pt remains intubated and sedated. Pt TF running at goal, GRV WNL as high as 350ml, per physical security manager during critical care rounds to add reglan TID. Pt is already receiving relistor, LBM NETWORK CONTRACT MANAGER. Will continue to monitor. Recommend: 1. continuous tube feeding with Vital High Protein at goal rate 95 ml/hr will provide total volume 2280 ml, 2280 cals, 200 g protein, and 1915 ml free water. 2. Additional water flush 250 ml q 4 hours per Grid Inspector order 3. Daily weight 4. Prealbumin q wednesday and 5. routine bowel care; reglan to start per MD at rounds Addendum: 11/01/19 at 1157 by Wing Cara AVERY Amended: Links added. Addendum: 11/01/19 at [address] BENNIE Tucker
[2019-11-01] MEDS ORDERED: metoclopramide 10mg tablet OGT SCH (12:00)
[2019-11-01] MEDS ORDERED: vancomycin/NS 1 GM ADD-VANTAGE 250 ML IV ONE ×2 (12:00→13:00)
[2019-11-01] MEDS: FENTANYL-0.9 % NACL/PF 100 ML IV PRN (13:06)
[2019-11-01 13:43] LABS: PARTIAL THROMBOPLASTIN TIME 38 SECONDS (22-32)
[2019-11-01] MEDS: heparin 10,000 units/1 ML INJ IV PRN (14:18)
--- NOTE | 2019-11-01 18:26 | NUR ---
Problems reprioritized. Patient report given to J Luis, questions answered & plan of care reviewed with .
--- NOTE | 2019-11-01 18:35 | NUR ---
Patient in room CICU 2008. I have received report from Sally HERNANDEZ and had the opportunity to ask questions and assume patient care.
[2019-11-01] MEDS: acetaminophen 325mg tablet OGT PRN (22:27)
[2019-11-02] VITALS (26 sets, daily range): BP systolic 106–151; BP diastolic 49–102
[2019-11-02] MEDS: heparin 25,000 UNIT/250ml bag 250 ML IV SCH ×2 (01:31→13:30)
[2019-11-02] MEDS: mineral oil/petrolatum ophthal oint EACHEYE SCH ×4 (01:33→19:32)
[2019-11-02 02:53] LABS: BASOPHILS % (AUTO) 0.7 % (0-1); EOSINOPHILS # (AUTO) 0.4 X10'3 (0-0.9); EOSINOPHILS % (AUTO) 5.1 % (0-6); HEMATOCRIT 40.3 % (42.0-52.0); HEMOGLOBIN 13.6 g/dl (14.0-17.9); LYMPHOCYTES # (AUTO) 0.8 X10'3 (1.1-4.8); LYMPHOCYTES % (AUTO) 11.9 % (21-51); MEAN CORPUSCULAR HEMOGLOBIN 34.4 PG (27.0-31.0); MEAN CORPUSCULAR HGB CONC 33.8 g/dL (33.0-36.5); MEAN CORPUSCULAR VOLUME 101.9 FL (78-98); MEAN PLATELET VOLUME 9.7 FL (7.4-10.4); MONOCYTES # (AUTO) 0.9 X10'3 (0-0.9); NEUTROPHILS # (AUTO) 4.8 X10'3 (1.8-7.7); NEUTROPHILS % (AUTO) 69.3 % (42-75); PLATELET COUNT 124 X10'3 (140-440); RED BLOOD COUNT 3.95 X10'6 (4.70-6.10); RED CELL DISTRIBUTION WIDTH 15.9 % (11.5-14.5); WHITE BLOOD COUNT 6.9 X10'3 (4.5-11.0)
[2019-11-02 03:10] LABS: ABG BASE EXCESS 8.1 mmol/L (-2.0-3.0); ABG HCO3 32.7 mmol/L (22.0-26.0); ABG OXYGEN SATURATION 94.8 % (95-98); ABG PCO2 (T) 46.7 mmHg (35.0-45.0); ABG PH (T) 7.466 (7.350-7.450); ABG PO2 (T) 72.4 mmHg (83-108); ALLEN'S TEST POSITIVE; FMetHb 0.1 % (0.3-1.12); FO2Hb 93.8 % (94-100); PATIENT TEMPERATURE 37.8; PEEP 5 cm H2O; RESPIRATORY RATE 22 b/min; TIDAL VOLUME 500 mL; TOTAL HEMOGLOBIN 14.2 G/dl (14.0-17.9)
[2019-11-02 03:10] LABS: ALANINE AMINOTRANSFERASE 323 U/L (12-78); ALBUMIN 2.3 G/DL (3.4-5.0); ALBUMIN/GLOBULIN RATIO 0.6 (1.1-1.5); ALKALINE PHOSPHATASE 56 IU/L (46-116); ANION GAP 1 (8-16); ASPARTATE AMINO TRANSFERASE 79 U/L (10-37); BILIRUBIN,TOTAL 1.9 MG/DL (0.1-1.0); BLOOD UREA NITROGEN 48 MG/DL (7-18); BUN/CREATININE RATIO 29.6 (5.4-32.0); CALCIUM 8.3 MG/DL (8.5-10.1); CHLORIDE 103 MMOL/L (99-107); CREATININE 1.62 MG/DL (0.60-1.10); GLUCOSE 89 MG/DL (70-104); MAGNESIUM 1.5 MG/DL (1.5-2.4); POTASSIUM 3.2 MMOL/L (3.5-5.1); SODIUM 140 MMOL/L (135-145); TOTAL CARBON DIOXIDE 36.3 MMOL/L (24-32); TOTAL PROTEIN 5.9 G/DL (6.4-8.2); eGFR 46 ML/MIN
[2019-11-02] MEDS: heparin 10,000 units/1 ML INJ IV PRN (03:39)
[2019-11-02] MEDS: dextrose 5%-water 1,000 ML IV SCH ×2 (03:48→23:11)
[2019-11-02] MEDS: potassium Cl 20mEq/100mL bag 100 ML IV PRN (05:47)
--- NOTE | 2019-11-02 06:35 | NUR ---
Problems reprioritized. Patient report given, questions answered & plan of care reviewed with Sally HERNANDEZ.
[2019-11-02] MEDS: K, MAG and/or Phos replacement - Verify level? MC SCH (08:00)
[2019-11-02] MEDS: carvedilol 6.25mg tablet OGT SCH ×2 (08:17→19:32)
[2019-11-02] MEDS: pantoprazole 40 MG vial IV SCH (08:17)
[2019-11-02] MEDS: amLODIPine 5mg tablet OGT SCH (08:18)
[2019-11-02] MEDS: aspirin 81mg tablet.DR PO SCH (08:18)
[2019-11-02] MEDS: furosemide 10 MG/1 ML 10ml inj IV SCH ×2 (08:19→19:33)
[2019-11-02 09:41] LABS: PARTIAL THROMBOPLASTIN TIME 61 SECONDS (22-32)
[2019-11-02] MEDS: lactulose 20gm/30ml cup PO SCH ×2 (12:02→19:32)
[2019-11-02] MEDS: FENTANYL-0.9 % NACL/PF 100 ML IV PRN (13:13)
[2019-11-02] MEDS ORDERED: furosemide 40mg/4ml inj IV ONE (14:55)
[2019-11-02] MEDS: dexmedetomidin/NS 400mcg/100ml 100 ML IV SCH ×2 (16:44→23:10)
[2019-11-02 16:47] LABS: PARTIAL THROMBOPLASTIN TIME 48 SECONDS (22-32)
--- NOTE | 2019-11-02 18:22 | NUR ---
Problems reprioritized. Patient report given to J Luis, questions answered & plan of care reviewed with .
--- NOTE | 2019-11-02 18:25 | NUR ---
Patient in room CICU 2008. I have received report from Sally HERNANDEZ and had the opportunity to ask questions and assume patient care.
[2019-11-02] MEDS: lactobacillus rhamnosus 10,000 MMU CELLS/CAPSULE PO SCH ×2 (19:32→19:35)
[2019-11-02] MEDS: ipratropium/albuterol 3ml nebule NEB PRN (21:14)
[2019-11-02 23:46] LABS: ABG BASE EXCESS 8.2 mmol/L (-2.0-3.0); ABG HCO3 30.8 mmol/L (22.0-26.0); ABG OXYGEN SATURATION 85.8 % (95-98); ABG PCO2 (T) 37.2 mmHg (35.0-45.0); ABG PH (T) 7.538 (7.350-7.450); ALLEN'S TEST POSITIVE; FCOHb 0.9 % (0.5-1.5); FMetHb 0.1 % (0.3-1.12); FO2Hb 84.9 % (94-100); PATIENT TEMPERATURE 37.8; PEEP 5 cm H2O; TIDAL VOLUME 500 mL; TOTAL HEMOGLOBIN 15.5 G/dl (14.0-17.9)
[2019-11-03] VITALS (24 sets, daily range): BP systolic 108–147; BP diastolic 74–102
[2019-11-03] MEDS ORDERED: VANCOMYCIN LEVEL IV ONE ×3 (00:30→12:30)
[2019-11-03] MEDS: mineral oil/petrolatum ophthal oint EACHEYE SCH ×4 (00:53→20:31)
[2019-11-03 01:55] LABS: OXYGEN SATURATION (MIXED VEN) 69.3 % (60-80); PO2 MIXED VENOUS (TEMP COR) 34.3 mmHg (35-46)
[2019-11-03 02:10] LABS: ABG BASE EXCESS 8.1 mmol/L (-2.0-3.0); ABG HCO3 32.4 mmol/L (22.0-26.0); ABG PCO2 (T) 44.3 mmHg (35.0-45.0); ABG PH (T) 7.484 (7.350-7.450); ABG PO2 (T) 56.3 mmHg (83-108); ALLEN'S TEST POSITIVE; PATIENT TEMPERATURE 37.6; PEEP 8 cm H2O; TIDAL VOLUME 500 mL
[2019-11-03 02:11] LABS: ABG OXYGEN SATURATION 90.3 % (95-98); FMetHb 0.3 % (0.3-1.12); FO2Hb 89.1 % (94-100); TOTAL HEMOGLOBIN 15.3 G/dl (14.0-17.9)
[2019-11-03] MEDS: midazolam 100mg in NS 100ml 100 ML IV PRN ×2 (02:24→16:26)
[2019-11-03 02:39] LABS: BASOPHILS % (AUTO) 0.5 % (0-1); EOSINOPHILS # (AUTO) 0.3 X10'3 (0-0.9); EOSINOPHILS % (AUTO) 3.9 % (0-6); HEMATOCRIT 42.9 % (42.0-52.0); HEMOGLOBIN 14.5 g/dl (14.0-17.9); LYMPHOCYTES # (AUTO) 0.8 X10'3 (1.1-4.8); MEAN CORPUSCULAR HEMOGLOBIN 34.6 PG (27.0-31.0); MEAN CORPUSCULAR HGB CONC 33.9 g/dL (33.0-36.5); MEAN CORPUSCULAR VOLUME 102.1 FL (78-98); MEAN PLATELET VOLUME 10.5 FL (7.4-10.4); MONOCYTES # (AUTO) 0.7 X10'3 (0-0.9); MONOCYTES % (AUTO) 9.9 % (2-12); NEUTROPHILS # (AUTO) 5.6 X10'3 (1.8-7.7); NEUTROPHILS % (AUTO) 74.7 % (42-75); PLATELET COUNT 165 X10'3 (140-440); RED CELL DISTRIBUTION WIDTH 15.6 % (11.5-14.5); WHITE BLOOD COUNT 7.5 X10'3 (4.5-11.0)
[2019-11-03 02:51] LABS: ALANINE AMINOTRANSFERASE 260 U/L (12-78); ALBUMIN 2.6 G/DL (3.4-5.0); ALBUMIN/GLOBULIN RATIO 0.6 (1.1-1.5); ALKALINE PHOSPHATASE 59 IU/L (46-116); ANION GAP 3 (8-16); ASPARTATE AMINO TRANSFERASE 57 U/L (10-37); BILIRUBIN,TOTAL 2.1 MG/DL (0.1-1.0); BLOOD UREA NITROGEN 40 MG/DL (7-18); BUN/CREATININE RATIO 27.4 (5.4-32.0); CALCIUM 8.6 MG/DL (8.5-10.1); CHLORIDE 99 MMOL/L (99-107); CREATININE 1.46 MG/DL (0.60-1.10); GLUCOSE 155 MG/DL (70-104); MAGNESIUM 1.5 MG/DL (1.5-2.4); PHOSPHORUS 2.8 MG/DL (2.3-4.5); SODIUM 140 MMOL/L (135-145); TOTAL CARBON DIOXIDE 37.9 MMOL/L (24-32); TOTAL PROTEIN 6.7 G/DL (6.4-8.2); eGFR 52 ML/MIN
[2019-11-03 02:56] LABS: POTASSIUM 2.9 MMOL/L (3.5-5.1)
[2019-11-03] MEDS: ipratropium/albuterol 3ml nebule NEB SCH ×6 (03:06→23:01)
[2019-11-03] MEDS: dexmedetomidin/NS 400mcg/100ml 100 ML IV SCH ×6 (03:20→20:30)
[2019-11-03 03:32] LABS: PLATELET ESTIMATE NORMAL
[2019-11-03] MEDS: heparin 25,000 UNIT/250ml bag 250 ML IV SCH ×2 (03:32→14:26)
[2019-11-03 03:33] LABS: LARGE PLATELETS FEW
[2019-11-03] MEDS: potassium Cl 20mEq/100mL bag 100 ML IV PRN ×4 (05:23→09:41)
[2019-11-03] MEDS: FENTANYL-0.9 % NACL/PF 100 ML IV PRN ×2 (06:17→20:32)
--- NOTE | 2019-11-03 06:29 | NUR ---
Patient in room CICU 2008. I have received report from Amber HERNANDEZ and had the opportunity to ask questions and assume patient care.
--- NOTE | 2019-11-03 06:46 | NUR ---
Problems reprioritized. Patient report given, questions answered & plan of care reviewed with Travis HERNANDEZ.
[2019-11-03] MEDS: methylnaltrexone br 12mg/0.6ml inj***SubQ only SQ SCH (07:41)
[2019-11-03] MEDS: amLODIPine 5mg tablet OGT SCH (07:41)
[2019-11-03] MEDS: pantoprazole 40 MG vial IV SCH (07:41)
[2019-11-03] MEDS: lactobacillus rhamnosus 10,000 MMU CELLS/CAPSULE PO SCH ×4 (07:41→20:31)
[2019-11-03] MEDS: aspirin 81mg tablet.DR PO SCH (07:41)
[2019-11-03] MEDS: lactulose 20gm/30ml cup PO SCH (07:41)
[2019-11-03] MEDS: carvedilol 6.25mg tablet OGT SCH ×2 (07:41→20:30)
[2019-11-03] MEDS: furosemide 10 MG/1 ML 10ml inj IV SCH ×2 (07:42→20:30)
[2019-11-03] MEDS: K, MAG and/or Phos replacement - Verify level? MC SCH (08:00)
--- NOTE | 2019-11-03 10:28 | NUR ---
Dressing to SC CL changed; Dressing to Left 18G AC changed
[2019-11-03 12:35] LABS: POTASSIUM 3.8 MMOL/L (3.5-5.1)
--- NOTE | 2019-11-03 15:10 | NUR ---
Reassessment: Pt remains intubated and sedated. Pt TF running at goal, gastric residuals up to 200 ml yesterday however still in normal limits. Still no significant bowel movement, only a smear on 10/30. Pt receiving relistor and reglan, lactulose given 11/03. Will continue to monitor. Recommend: 1. continuous tube feeding with Vital High Protein at goal rate 95 ml/hr will provide total volume 2280 ml, 2280 cals, 200 g protein, and 1915 ml free water. 2. Additional water flush 250 ml q 4 hours per Java Developer With Security Clearance order 3. Daily weight 4. Prealbumin q wednesday and 5. routine bowel care Addendum: 11/03/19 at [address] Amended: Links added.
[2019-11-03 16:30] LABS: ABG BASE EXCESS 5.5 mmol/L (-2.0-3.0); ABG HCO3 29.6 mmol/L (22.0-26.0); ABG OXYGEN SATURATION 92.7 % (95-98); ABG PCO2 (T) 40.3 mmHg (35.0-45.0); ABG PH (T) 7.482 (7.350-7.450); ABG PO2 (T) 58.8 mmHg (83-108); ALLEN'S TEST POSITIVE; FCOHb 0.6 % (0.5-1.5); FMetHb 0.2 % (0.3-1.12); PATIENT TEMPERATURE 36.6; PEEP 5 cm H2O; RESPIRATORY RATE 22 b/min; TIDAL VOLUME 500 mL; TOTAL HEMOGLOBIN 15.4 G/dl (14.0-17.9)
--- NOTE | 2019-11-03 18:26 | NUR ---
Problems reprioritized. Patient report given, questions answered & plan of care reviewed with Jill HERNANDEZ.
--- NOTE | 2019-11-03 18:30 | NUR ---
Patient in room CICU 2008. I have received report from MARY Gaines and had the opportunity to ask questions and assume patient care.
[2019-11-03 22:58] LABS: CREATININE 1.83 MG/DL (0.60-1.10)
[2019-11-04] VITALS (27 sets, daily range): BP systolic 75–135; BP diastolic 42–96
[2019-11-04 00:56] LABS: BASOPHILS # (AUTO) 0.1 X10'3 (0-0.2); BASOPHILS % (AUTO) 1.4 % (0-1); EOSINOPHILS # (AUTO) 0.1 X10'3 (0-0.9); EOSINOPHILS % (AUTO) 1.1 % (0-6); HEMATOCRIT 42.6 % (42.0-52.0); HEMOGLOBIN 14.6 g/dl (14.0-17.9); LYMPHOCYTES # (AUTO) 0.7 X10'3 (1.1-4.8); LYMPHOCYTES % (AUTO) 10.6 % (21-51); MEAN CORPUSCULAR HEMOGLOBIN 34.8 PG (27.0-31.0); MEAN CORPUSCULAR HGB CONC 34.4 g/dL (33.0-36.5); MEAN CORPUSCULAR VOLUME 101.3 FL (78-98); MEAN PLATELET VOLUME 10.2 FL (7.4-10.4); MONOCYTES # (AUTO) 0.6 X10'3 (0-0.9); MONOCYTES % (AUTO) 8.2 % (2-12); NEUTROPHILS # (AUTO) 5.3 X10'3 (1.8-7.7); NEUTROPHILS % (AUTO) 78.7 % (42-75); PLATELET COUNT 181 X10'3 (140-440); RED CELL DISTRIBUTION WIDTH 15.4 % (11.5-14.5); WHITE BLOOD COUNT 6.7 X10'3 (4.5-11.0)
[2019-11-04 01:07] LABS: ALANINE AMINOTRANSFERASE 179 U/L (12-78); ALBUMIN 2.4 G/DL (3.4-5.0); ALBUMIN/GLOBULIN RATIO 0.6 (1.1-1.5); ALKALINE PHOSPHATASE 73 IU/L (46-116); ANION GAP 6 (8-16); ASPARTATE AMINO TRANSFERASE 54 U/L (10-37); BILIRUBIN,TOTAL 1.7 MG/DL (0.1-1.0); BLOOD UREA NITROGEN 52 MG/DL (7-18); BUN/CREATININE RATIO 26.5 (5.4-32.0); CALCIUM 8.5 MG/DL (8.5-10.1); CHLORIDE 101 MMOL/L (99-107); CREATININE 1.96 MG/DL (0.60-1.10); GLUCOSE 138 MG/DL (70-104); MAGNESIUM 1.7 MG/DL (1.5-2.4); PHOSPHORUS 2.1 MG/DL (2.3-4.5); POTASSIUM 3.9 MMOL/L (3.5-5.1); SODIUM 138 MMOL/L (135-145); TOTAL CARBON DIOXIDE 31.2 MMOL/L (24-32); TOTAL PROTEIN 6.6 G/DL (6.4-8.2); eGFR 37 ML/MIN
[2019-11-04 01:21] LABS: ABG BASE EXCESS 4.6 mmol/L (-2.0-3.0); ABG OXYGEN SATURATION 85.5 % (95-98); ABG PH (T) 7.452 (7.350-7.450); ALLEN'S TEST POSITIVE; FCOHb 0.8 % (0.5-1.5); FMetHb 0.2 % (0.3-1.12); FO2Hb 84.6 % (94-100); PATIENT TEMPERATURE 41.5; PEEP 5 cm H2O; RESPIRATORY RATE 22 b/min; TIDAL VOLUME 500 mL; TOTAL HEMOGLOBIN 15.3 G/dl (14.0-17.9)
[2019-11-04] MEDS: acetaminophen 1,000mg/100ml IV 100 ML IV SCH ×3 (01:33→13:53)
[2019-11-04] MEDS: mineral oil/petrolatum ophthal oint EACHEYE SCH ×4 (01:33→20:54)
[2019-11-04] MEDS: VANCOmycin 1250MG/NS 250ml Bag 250 ML IV SCH ×2 (01:34→13:53)
[2019-11-04 02:16] LABS: CLARITY,URINE CLOUDY (Clear); COLOR,URINE YELLOW (Yellow); GLUCOSE, URINE NEGATIVE (Neg); KETONES,URINE NEGATIVE (Neg); LEUKOCYTE ESTERASE ,URINE NEGATIVE (Neg); NITRITES, URINE NEGATIVE (Neg); OCCULT BLOOD,URINE LARGE (Neg); PH,URINE 5.5 (4.8-8.0); PROTEIN,URINE NEGATIVE (Neg)
[2019-11-04] MEDS ORDERED: VECuronium br 10mg inj. IV ONE (02:20)
[2019-11-04] MEDS ORDERED: CISatracurium besylate inj. 100 MG in normal saline 100ml IV soln 90 ML IV PRN (02:20)
[2019-11-04] MEDS ORDERED: CISATRACURIUM BESYLATE IV PRN ×2 (02:25→02:26)
[2019-11-04] MEDS ORDERED: NORMAL SALINE IV PRN ×2 (02:25→02:26)
[2019-11-04 02:31] LABS: UA COLLECTION TYPE FOLEY CATH
[2019-11-04 02:48] LABS: RBC,URINE TNTC /HPF (0-2); WBC,URINE 0-4 /HPF (0-4)
[2019-11-04 02:49] LABS: BACTERIA,URINE 1+ /HPF (Neg); SQUAMOUS EPITHELIAL CELL,UR FEW /LPF (FEW)
[2019-11-04 02:50] LABS: AMORPHOUS URATES 1+; MUCUS STRANDS FEW /LPF (Neg)
[2019-11-04] MEDS ORDERED: NORepinephrine 8mg/ 250ml NS 250 ML IV ONE (02:51)
[2019-11-04] MEDS: heparin 25,000 UNIT/250ml bag 250 ML IV SCH ×2 (02:51→21:14)
[2019-11-04] MEDS: midazolam 100mg in NS 100ml 100 ML IV PRN ×4 (02:57→21:53)
[2019-11-04] MEDS: ipratropium/albuterol 3ml nebule NEB SCH ×6 (02:58→23:05)
[2019-11-04] MEDS: CISatracurium besylate inj. 100 MG in normal saline 100ml IV soln 90 ML IV PRN ×2 (03:05→13:28)
[2019-11-04] MEDS: NORepinephrine 8mg/ 250ml NS 250 ML IV PRN ×3 (03:55→15:40)
[2019-11-04] MEDS ORDERED: DANTROLENE SODIUM IV ONE ×2 (04:00)
[2019-11-04 04:24] LABS: CREATINE KINASE 78 U/L (39-308)
--- NOTE | 2019-11-04 06:30 | NUR ---
Patient in room CICU 2008. I have received report from Jill HERNANDEZ and had the opportunity to ask questions and assume patient care.
--- NOTE | 2019-11-04 06:47 | NUR ---
Problems reprioritized. Patient report given, questions answered & plan of care reviewed with MARY Gaines.
[2019-11-04] MEDS: lactobacillus rhamnosus 10,000 MMU CELLS/CAPSULE PO SCH ×4 (07:00→20:54)
[2019-11-04] MEDS: amLODIPine 5mg tablet OGT SCH (07:01)
[2019-11-04] MEDS: furosemide 10 MG/1 ML 10ml inj IV SCH ×2 (07:01→20:55)
[2019-11-04] MEDS: carvedilol 6.25mg tablet OGT SCH ×3 (07:01→20:54)
[2019-11-04] MEDS: K, MAG and/or Phos replacement - Verify level? MC SCH (07:02)
[2019-11-04] MEDS: FENTANYL-0.9 % NACL/PF 100 ML IV PRN ×3 (07:25→22:31)
[2019-11-04] MEDS: pantoprazole 40 MG vial IV SCH (07:39)
[2019-11-04] MEDS: aspirin 81mg tablet.DR PO SCH (07:39)
--- NOTE | 2019-11-04 08:59 | NUR ---
Rectal tube placed with full linen change
--- NOTE | 2019-11-04 17:48 | NUR ---
Patient now has developed hematuria. Spoke to Dr. Brown regarding new development, ordered H&H on top of upcoming PTT.
[2019-11-04 18:03] LABS: HEMATOCRIT 43.1 % (42.0-52.0); HEMOGLOBIN 14.7 g/dl (14.0-17.9); MEAN CORPUSCULAR HEMOGLOBIN 34.6 PG (27.0-31.0); MEAN CORPUSCULAR HGB CONC 34.2 g/dL (33.0-36.5); MEAN CORPUSCULAR VOLUME 101.3 FL (78-98); MEAN PLATELET VOLUME 10.2 FL (7.4-10.4); PLATELET COUNT 190 X10'3 (140-440); RED BLOOD COUNT 4.26 X10'6 (4.70-6.10); RED CELL DISTRIBUTION WIDTH 15.5 % (11.5-14.5); WHITE BLOOD COUNT 6.6 X10'3 (4.5-11.0)
[2019-11-04] MEDS: dexmedetomidin/NS 400mcg/100ml 100 ML IV SCH (19:06)
--- NOTE | 2019-11-04 20:00 | NUR ---
11/04 1999 residual check was 1250 ml, amount too high for charting in residual intervention
[2019-11-05] VITALS (23 sets, daily range): BP systolic 81–130; BP diastolic 44–112
[2019-11-05 01:46] LABS: BASOPHILS # (AUTO) 0.1 X10'3 (0-0.2); BASOPHILS % (AUTO) 0.6 % (0-1); EOSINOPHILS % (AUTO) 0.1 % (0-6); HEMATOCRIT 43.3 % (42.0-52.0); HEMOGLOBIN 14.8 g/dl (14.0-17.9); LYMPHOCYTES # (AUTO) 0.8 X10'3 (1.1-4.8); MEAN CORPUSCULAR HEMOGLOBIN 34.8 PG (27.0-31.0); MEAN CORPUSCULAR HGB CONC 34.3 g/dL (33.0-36.5); MEAN CORPUSCULAR VOLUME 101.5 FL (78-98); MEAN PLATELET VOLUME 10.2 FL (7.4-10.4); MONOCYTES # (AUTO) 0.5 X10'3 (0-0.9); MONOCYTES % (AUTO) 6.3 % (2-12); NEUTROPHILS # (AUTO) 7.1 X10'3 (1.8-7.7); PLATELET COUNT 148 X10'3 (140-440); RED BLOOD COUNT 4.27 X10'6 (4.70-6.10); RED CELL DISTRIBUTION WIDTH 15.7 % (11.5-14.5); WHITE BLOOD COUNT 8.5 X10'3 (4.5-11.0)
[2019-11-05] MEDS: dexmedetomidin/NS 400mcg/100ml 100 ML IV SCH ×3 (02:24→16:23)
[2019-11-05] MEDS: VANCOmycin 1250MG/NS 250ml Bag 250 ML IV SCH (02:26)
[2019-11-05] MEDS: mineral oil/petrolatum ophthal oint EACHEYE SCH ×4 (02:29→20:32)
[2019-11-05 03:13] LABS: ALANINE AMINOTRANSFERASE 153 U/L (12-78); ALBUMIN 2.4 G/DL (3.4-5.0); ALBUMIN/GLOBULIN RATIO 0.6 (1.1-1.5); ALKALINE PHOSPHATASE 54 IU/L (46-116); ANION GAP 6 (8-16); ASPARTATE AMINO TRANSFERASE 43 U/L (10-37); BILIRUBIN,TOTAL 1.5 MG/DL (0.1-1.0); BLOOD UREA NITROGEN 51 MG/DL (7-18); BUN/CREATININE RATIO 34.2 (5.4-32.0); CALCIUM 8.4 MG/DL (8.5-10.1); CHLORIDE 102 MMOL/L (99-107); CREATININE 1.49 MG/DL (0.60-1.10); GLUCOSE 129 MG/DL (70-104); POTASSIUM 3.6 MMOL/L (3.5-5.1); SODIUM 140 MMOL/L (135-145); TOTAL CARBON DIOXIDE 32.2 MMOL/L (24-32); TOTAL PROTEIN 6.5 G/DL (6.4-8.2); eGFR 51 ML/MIN
[2019-11-05] MEDS: ipratropium/albuterol 3ml nebule NEB SCH ×6 (03:19→23:14)
[2019-11-05] MEDS: midazolam 100mg in NS 100ml 100 ML IV PRN ×4 (03:38→20:33)
[2019-11-05 04:16] LABS: ABG BASE EXCESS 5.8 mmol/L (-2.0-3.0); ABG HCO3 29.9 mmol/L (22.0-26.0); ABG OXYGEN SATURATION 93.4 % (95-98); ABG PCO2 (T) 41.1 mmHg (35.0-45.0); ABG PH (T) 7.479 (7.350-7.450); ABG PO2 (T) 60.2 mmHg (83-108); FCOHb 0.7 % (0.5-1.5); FMetHb 0.3 % (0.3-1.12); FO2Hb 92.5 % (94-100); PATIENT TEMPERATURE 36.8; RESPIRATORY RATE 22 b/min; TIDAL VOLUME 500 mL; TOTAL HEMOGLOBIN 14.5 G/dl (14.0-17.9)
[2019-11-05] MEDS: FENTANYL-0.9 % NACL/PF 100 ML IV PRN ×3 (05:58→20:33)
[2019-11-05] MEDS: pantoprazole 40 MG vial IV SCH (07:33)
[2019-11-05] MEDS: aspirin 81mg tablet.DR PO SCH (07:34)
[2019-11-05] MEDS: lactobacillus rhamnosus 10,000 MMU CELLS/CAPSULE PO SCH ×4 (07:34→20:32)
[2019-11-05] MEDS: furosemide 10 MG/1 ML 10ml inj IV SCH ×2 (07:35→20:34)
[2019-11-05 07:44] LABS: PARTIAL THROMBOPLASTIN TIME 47 SECONDS (22-32)
[2019-11-05] MEDS: carvedilol 6.25mg tablet OGT SCH ×2 (07:47→20:00)
[2019-11-05] MEDS: amLODIPine 5mg tablet OGT SCH (08:00)
[2019-11-05] MEDS: K, MAG and/or Phos replacement - Verify level? MC SCH (08:52)
[2019-11-05 10:26] LABS: CREATINE KINASE 53 U/L (39-308)
[2019-11-05] MEDS: NORMAL SALINE IV SCH ×3 (12:34→20:33)
[2019-11-05] MEDS: NAFCILLIN IV SCH ×3 (12:34→20:33)
--- NOTE | 2019-11-05 12:38 | NUR ---
Reassessment: Pt GRV 550 this AM and EN held; to be restarted at 12PM today per RN. 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 Likely impacting EN tolerance on fentanyl and midazolam. Copious BM 2 receiving lactulose but also first real BM following week constipation. Will monitor for EN tolerance. Recommend: 1. continuous tube feeding with Vital High Protein at goal rate 95 ml/hr will provide total volume 2280 ml, 2280 cals, 200 g protein, and 1915 ml free water. 2. Additional water flush 250 ml q 4 hours per Director Of Labor And Delivery order 3. Daily weight 4. Prealbumin q wednesday and 5. routine bowel care Addendum: 11/05/19 at [address] Amended: Links added. Addendum: 11/05/19 at [address] Reassessment: Pt GRV 550 this AM and EN held; to be restarted at 12PM today per RN. 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 Likely impacting EN tolerance on fentanyl and midazolam. Copious BM 2/8 receiving lactulose but also first real BM following week constipation. Kirill 12 w/ R foot blister and IAD but no WOC note or 2 RN skin assessment in care activity. Will monitor for EN tolerance. Recommend: 1. continuous tube feeding with Vital High Protein at goal rate 95 ml/hr will provide total volume 2280 ml, 2280 cals, 200 g protein, and 1915 ml free water. 2. Additional water flush 250 ml q 4 hours per Director Of Labor And Delivery order 3. Daily weight 4. Prealbumin q wednesday and 5. routine bowel care
[2019-11-05] MEDS: sodium bicarbonate (8.4%) inj. 100 MEQ in dextrose 5%-water 1,000 ML IV SCH ×2 (12:54→20:34)
[2019-11-05] MEDS ORDERED: VANCOMYCIN LEVEL IV ONE (13:30)
[2019-11-05 14:13] LABS: PARTIAL THROMBOPLASTIN TIME 40 SECONDS (22-32)
[2019-11-05] MEDS: heparin 10,000 units/1 ML INJ IV PRN ×2 (14:50→23:32)
[2019-11-05] MEDS: heparin 25,000 UNIT/250ml bag 250 ML IV SCH (14:51)
--- NOTE | 2019-11-05 18:26 | NUR ---
Problems reprioritized. Patient report given to Jill, questions answered & plan of care reviewed with .
[2019-11-05 23:08] LABS: PARTIAL THROMBOPLASTIN TIME 44 SECONDS (22-32)
[2019-11-06] VITALS (24 sets, daily range): BP systolic 72–151; BP diastolic 50–116
[2019-11-06] MEDS: NAFCILLIN IV SCH ×7 (00:03→23:44)
[2019-11-06] MEDS: NORMAL SALINE IV SCH ×7 (00:03→23:44)
[2019-11-06] MEDS: dexmedetomidin/NS 400mcg/100ml 100 ML IV SCH ×2 (00:18→07:36)
[2019-11-06] MEDS ORDERED: baclofen 10mg tablet PO PRN (01:25)
[2019-11-06] MEDS: baclofen 10mg tablet PO SCH ×4 (01:35→23:46)
[2019-11-06 01:50] LABS: ABG BASE EXCESS 6.9 mmol/L (-2.0-3.0); ABG HCO3 31.2 mmol/L (22.0-26.0); ABG OXYGEN SATURATION 98.8 % (95-98); ABG PCO2 (T) 45.4 mmHg (35.0-45.0); ABG PO2 (T) 135.8 mmHg (83-108); FCOHb 0.4 % (0.5-1.5); FMetHb 0.1 % (0.3-1.12); FO2Hb 98.3 % (94-100); PATIENT TEMPERATURE 38.2; PEEP 5 cm H2O; RESPIRATORY RATE 22 b/min; TIDAL VOLUME 500 mL
[2019-11-06 01:56] LABS: ALANINE AMINOTRANSFERASE 107 U/L (12-78); ALBUMIN 2.3 G/DL (3.4-5.0); ALBUMIN/GLOBULIN RATIO 0.6 (1.1-1.5); ALKALINE PHOSPHATASE 55 IU/L (46-116); ANION GAP 6 (8-16); ASPARTATE AMINO TRANSFERASE 28 U/L (10-37); BILIRUBIN,TOTAL 1.7 MG/DL (0.1-1.0); BLOOD UREA NITROGEN 56 MG/DL (7-18); BUN/CREATININE RATIO 32.2 (5.4-32.0); CALCIUM 8.4 MG/DL (8.5-10.1); CHLORIDE 102 MMOL/L (99-107); CREATININE 1.74 MG/DL (0.60-1.10); GLUCOSE 108 MG/DL (70-104); MAGNESIUM 1.9 MG/DL (1.5-2.4); PHOSPHORUS 3.2 MG/DL (2.3-4.5); POTASSIUM 3.2 MMOL/L (3.5-5.1); PREALBUMIN 15.6 MG/DL (19-36); SODIUM 141 MMOL/L (135-145); TOTAL CARBON DIOXIDE 33.4 MMOL/L (24-32); TOTAL PROTEIN 6.1 G/DL (6.4-8.2); eGFR 42 ML/MIN
[2019-11-06 02:04] LABS: BASOPHILS % (AUTO) 0.5 % (0-1); EOSINOPHILS # (AUTO) 0.1 X10'3 (0-0.9); EOSINOPHILS % (AUTO) 1.3 % (0-6); HEMATOCRIT 40.3 % (42.0-52.0); HEMOGLOBIN 13.4 g/dl (14.0-17.9); LYMPHOCYTES # (AUTO) 0.9 X10'3 (1.1-4.8); LYMPHOCYTES % (AUTO) 10.5 % (21-51); MEAN CORPUSCULAR HEMOGLOBIN 34.1 PG (27.0-31.0); MEAN CORPUSCULAR HGB CONC 33.3 g/dL (33.0-36.5); MEAN CORPUSCULAR VOLUME 102.3 FL (78-98); MEAN PLATELET VOLUME 11.1 FL (7.4-10.4); MONOCYTES # (AUTO) 0.5 X10'3 (0-0.9); MONOCYTES % (AUTO) 6.1 % (2-12); NEUTROPHILS # (AUTO) 7.1 X10'3 (1.8-7.7); NEUTROPHILS % (AUTO) 81.6 % (42-75); PLATELET COUNT 144 X10'3 (140-440); RED BLOOD COUNT 3.94 X10'6 (4.70-6.10); RED CELL DISTRIBUTION WIDTH 15.8 % (11.5-14.5); WHITE BLOOD COUNT 8.7 X10'3 (4.5-11.0)
[2019-11-06] MEDS: mineral oil/petrolatum ophthal oint EACHEYE SCH ×4 (02:51→20:00)
[2019-11-06] MEDS: potassium Cl 20mEq/100mL bag 100 ML IV PRN (02:59)
[2019-11-06] MEDS: ipratropium/albuterol 3ml nebule NEB SCH ×6 (03:10→23:03)
[2019-11-06] MEDS: heparin 25,000 UNIT/250ml bag 250 ML IV SCH ×2 (03:45→16:16)
[2019-11-06] MEDS: midazolam 100mg in NS 100ml 100 ML IV PRN ×5 (04:41→22:04)
--- NOTE | 2019-11-06 05:41 | NUR ---
At approximately 0115, onset of seizures developed. Onset of seizures are sudden with pt heart rate increasing from a controlled A-fib in the 90's to rapid as high as 180's with increased ectopy and alternating bundles. During activity, the pts head and eyes deviate to the left with rhythmatic eye twitching noted. Pts BIS rate increases from the 40's to the high 90's as well as an increase in pt temperature as high as 2 degrees Celsius during an individual event which can last anywhere from 5-20 minutes at a time. Bilateral upper arms have increased muscle rigidity followed by slight muscle jerking in the upper extremities during each episode. The lower legs were noted to have rigidity only on two separate occasions. The pt is also noted to have shallow breathing and decreased tidal volumes. An excess amount of Versed needed during each seizure to control pt symptoms. Baclofen given per PA order as well as the [facility] normothermia restarted. Addendum: 11/06/19 at 0607 by Jill Bob RN Narrowing pulse pressure also noted during events.
[2019-11-06] MEDS: lactobacillus rhamnosus 10,000 MMU CELLS/CAPSULE PO SCH ×2 (07:43→08:00)
[2019-11-06] MEDS: aspirin 81mg tablet.DR PO SCH (07:43)
[2019-11-06] MEDS: pantoprazole 40 MG vial IV SCH (07:43)
[2019-11-06] MEDS: furosemide 10 MG/1 ML 10ml inj IV SCH ×3 (07:44→20:39)
[2019-11-06] MEDS: amLODIPine 5mg tablet OGT SCH (08:00)
[2019-11-06] MEDS: carvedilol 6.25mg tablet OGT SCH ×2 (08:00→20:36)
[2019-11-06] MEDS: K, MAG and/or Phos replacement - Verify level? MC SCH (08:00)
[2019-11-06] MEDS: FENTANYL-0.9 % NACL/PF 100 ML IV PRN ×2 (09:02→14:04)
[2019-11-06] MEDS: sodium bicarbonate (8.4%) inj. 100 MEQ in dextrose 5%-water 1,000 ML IV SCH ×2 (10:40→20:37)
[2019-11-06] MEDS: diltiazem-NS 100mg/100ml 100 ML IV SCH ×2 (11:25→21:25)
[2019-11-06] MEDS ORDERED: diltiazem 5mg/ml 5ml inj. IV ONE (11:25)
[2019-11-06] MEDS ORDERED: VECuronium br 10mg inj. IV ONE ×2 (11:45→23:35)
--- NOTE | 2019-11-06 12:03 | NUR ---
F/u: Pt TF restarted and tolerating but now on hold for CT and pending respiratory treatment for significant upper respiratory mucous and secretion. TF to be held today per MD. Addendum: 11/06/19 at [address] Amended: Links added.
[2019-11-06] MEDS ORDERED: amiodarone 150mg/dext, iso-os 100 ML IV ONE ×2 (12:05)
[2019-11-06] MEDS: amiodarone/D5 360MG/200ML BAG 200 ML IV SCH ×2 (12:15→18:08)
[2019-11-06] MEDS ORDERED: iohexol 350MG/ML 100ml bottle IV ONE (13:34)
[2019-11-06 14:17] LABS: PARTIAL THROMBOPLASTIN TIME 72 SECONDS (22-32)
--- NOTE | 2019-11-06 17:04 | NUR ---
Dr. Adams and Christa (Charge Nurse) at bedside, per his order administered 2 doses of adenosine 6mg and 12mg and one dose of Rocuronium as pt's condition required. Medication pulled from crash card. Pharmacy aware.
--- NOTE | 2019-11-06 18:36 | NUR ---
Problems reprioritized. Patient report given to Jill, questions answered & plan of care reviewed with .
[2019-11-06 20:13] LABS: PARTIAL THROMBOPLASTIN TIME 44 SECONDS (22-32)
[2019-11-06] MEDS: lactobacillus rhamnosus 10,000 MMU CELLS/CAPSULE OGT SCH (20:36)
[2019-11-06] MEDS: heparin 10,000 units/1 ML INJ IV PRN (20:57)
[2019-11-07] VITALS (24 sets, daily range): BP systolic 93–141; BP diastolic 51–97
[2019-11-07 02:47] LABS: BASOPHILS % (AUTO) 0.5 % (0-1); EOSINOPHILS # (AUTO) 0.1 X10'3 (0-0.9); EOSINOPHILS % (AUTO) 1.6 % (0-6); HEMATOCRIT 40.4 % (42.0-52.0); HEMOGLOBIN 13.9 g/dl (14.0-17.9); LYMPHOCYTES # (AUTO) 0.3 X10'3 (1.1-4.8); LYMPHOCYTES % (AUTO) 3.5 % (21-51); MEAN CORPUSCULAR HEMOGLOBIN 34.5 PG (27.0-31.0); MEAN CORPUSCULAR HGB CONC 34.3 g/dL (33.0-36.5); MEAN CORPUSCULAR VOLUME 100.5 FL (78-98); MEAN PLATELET VOLUME 11.6 FL (7.4-10.4); MONOCYTES # (AUTO) 0.4 X10'3 (0-0.9); MONOCYTES % (AUTO) 5.3 % (2-12); NEUTROPHILS # (AUTO) 7.1 X10'3 (1.8-7.7); NEUTROPHILS % (AUTO) 89.1 % (42-75); PLATELET COUNT 148 X10'3 (140-440); RED BLOOD COUNT 4.02 X10'6 (4.70-6.10); RED CELL DISTRIBUTION WIDTH 15.7 % (11.5-14.5)
[2019-11-07] MEDS: midazolam 100mg in NS 100ml 100 ML IV PRN ×5 (02:50→23:56)
[2019-11-07] MEDS: mineral oil/petrolatum ophthal oint EACHEYE SCH ×4 (02:50→20:34)
[2019-11-07 02:53] LABS: ALANINE AMINOTRANSFERASE 81 U/L (12-78); ALBUMIN 2.4 G/DL (3.4-5.0); ALBUMIN/GLOBULIN RATIO 0.6 (1.1-1.5); ALKALINE PHOSPHATASE 53 IU/L (46-116); ANION GAP 7 (8-16); ASPARTATE AMINO TRANSFERASE 34 U/L (10-37); BILIRUBIN,TOTAL 1.7 MG/DL (0.1-1.0); BLOOD UREA NITROGEN 40 MG/DL (7-18); CALCIUM 8.5 MG/DL (8.5-10.1); CHLORIDE 99 MMOL/L (99-107); CREATININE 1.48 MG/DL (0.60-1.10); GLUCOSE 115 MG/DL (70-104); MAGNESIUM 1.6 MG/DL (1.5-2.4); PHOSPHORUS 2.2 MG/DL (2.3-4.5); SODIUM 142 MMOL/L (135-145); TOTAL CARBON DIOXIDE 35.9 MMOL/L (24-32); TOTAL PROTEIN 6.1 G/DL (6.4-8.2); eGFR 51 ML/MIN
[2019-11-07] MEDS: ipratropium/albuterol 3ml nebule NEB SCH ×6 (02:58→23:26)
[2019-11-07 03:06] LABS: POTASSIUM 2.5 MMOL/L (3.5-5.1)
[2019-11-07] MEDS: NAFCILLIN IV SCH ×5 (03:08→20:16)
[2019-11-07] MEDS: NORMAL SALINE IV SCH ×5 (03:08→20:16)
[2019-11-07] MEDS: potassium Cl 20mEq/100mL bag 100 ML IV PRN ×5 (03:08→23:41)
[2019-11-07] MEDS: amiodarone/D5 360MG/200ML BAG 200 ML IV SCH ×4 (03:11→16:17)
[2019-11-07 03:21] LABS: ABG BASE EXCESS 12.8 mmol/L (-2.0-3.0); ABG HCO3 37.4 mmol/L (22.0-26.0); ABG OXYGEN SATURATION 95.6 % (95-98); ABG PCO2 (T) 45.4 mmHg (35.0-45.0); ABG PH (T) 7.531 (7.350-7.450); ABG PO2 (T) 64.8 mmHg (83-108); ALLEN'S TEST POSITIVE; FCOHb 0.4 % (0.5-1.5); FO2Hb 95.2 % (94-100); PATIENT TEMPERATURE 36.4; PEEP 5 cm H2O; RESPIRATORY RATE 24 b/min; TIDAL VOLUME 500 mL; TOTAL HEMOGLOBIN 14.5 G/dl (14.0-17.9)
[2019-11-07 04:06] LABS: LARGE PLATELETS MODERATE; PLATELET ESTIMATE NORMAL
[2019-11-07] MEDS: FENTANYL-0.9 % NACL/PF 100 ML IV PRN ×5 (04:10→21:03)
--- NOTE | 2019-11-07 04:45 | NUR ---
Received critical lab value K+ = 2.5; Pt on potassium supplement protocol. September. notified; K+ Supplement initiated and administered K+ as ordered immediately.
[2019-11-07] MEDS: heparin 25,000 UNIT/250ml bag 250 ML IV SCH ×2 (05:36→23:59)
--- NOTE | 2019-11-07 06:43 | NUR ---
Problems reprioritized. Patient report given, questions answered & plan of care reviewed with MARY Jackson.
[2019-11-07] MEDS: diltiazem-NS 100mg/100ml 100 ML IV SCH (07:25)
[2019-11-07] MEDS: aspirin 81mg tab.chew OGT SCH (07:49)
[2019-11-07] MEDS: pantoprazole 40 MG vial IV SCH (07:49)
[2019-11-07] MEDS: furosemide 10 MG/1 ML 10ml inj IV SCH ×3 (07:49→20:21)
[2019-11-07] MEDS: carvedilol 6.25mg tablet OGT SCH ×2 (07:50→20:21)
[2019-11-07] MEDS: lactobacillus rhamnosus 10,000 MMU CELLS/CAPSULE OGT SCH ×2 (07:50→20:17)
[2019-11-07] MEDS: baclofen 10mg tablet PO SCH ×3 (07:50→23:46)
[2019-11-07] MEDS: amLODIPine 5mg tablet OGT SCH (07:50)
[2019-11-07] MEDS: sodium bicarbonate (8.4%) inj. 100 MEQ in dextrose 5%-water 1,000 ML IV SCH ×2 (07:51→20:16)
[2019-11-07] MEDS: acetaminophen 325mg tablet OGT PRN (07:51)
[2019-11-07] MEDS: K, MAG and/or Phos replacement - Verify level? MC SCH (07:52)
[2019-11-07] MEDS: POTASSIUM BICARB 20meq eff tab 20 MEQ TABLET.EFF OGT PRN ×3 (09:16→17:02)
[2019-11-07] MEDS ORDERED: NORepinephrine 8mg/ 250ml NS 250 ML IV PRN (09:58)
[2019-11-07] MEDS: ciprofloxacin lact 400MG/200ML 200 ML IV SCH ×2 (11:04→19:15)
[2019-11-07 11:38] LABS: CREATINE KINASE 331 U/L (39-308)
[2019-11-07] MEDS: CISatracurium besylate inj. 100 MG in normal saline 100ml IV soln 90 ML IV SCH (11:41)
[2019-11-07 12:03] LABS: GASTRIC OCCULT BLOOD NEGATIVE (Neg)
[2019-11-07 15:33] LABS: APPEARANCE,CSF CLEAR; CSF SUPERNATANT COLOR COLORLESS; CSF VOLUME 7.5 ML; CSF WBC CT 0 /CU MM (0-5); GLUCOSE,CSF 63 MG/DL (40-75); TOTAL PROTEIN,CSF 41 MG/DL (15-45); TUBE# COUNTED 1
[2019-11-07 15:34] LABS: APPEARANCE,CSF CLEAR; CSF RBC 10 /CU MM (0); CSF RBC 4 /CU MM (0); CSF SUPERNATANT COLOR COLORLESS; CSF VOLUME 7.5 ML; CSF WBC CT 0 /CU MM (0-5); TUBE# COUNTED 4
--- NOTE | 2019-11-07 15:36 | NUR ---
F/u: Patient's tube feeding turned off again due to reported elevated gastric residuals and now thick, greenish output through OG tube, on suction. Currently not meeting nutrition needs. Pending CT. Patient was having thick respiratory secretions. Possible that OG tube output also with respiratory secretions. Per MD at rounds the OG secretions will be cultured. Reassessment: Pt GRV 550 this AM and EN held; to be restarted at 12PM today per RN. 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 Likely impacting EN tolerance on fentanyl and midazolam. Copious BM 2/8 receiving lactulose but also first real BM following week constipation. Kirill 12 w/ R foot blister and IAD but no WOC note or 2 RN skin assessment in care activity. Will monitor for EN tolerance. Recommend: 1. Hold tube feedings today per MD and Nursing at rounds. As medically indicated recommend to continue continuous tube feeding with Vital High Protein at goal rate 95 ml/hr will provide total volume 2280 ml, 2280 cals, 200 g protein, and 1915 ml free water. 2. When tube feedings resume continue additional water flush 250 ml q 4 hours 3. Daily weight 4. Prealbumin q wednesday and 5. routine bowel care Addendum: 11/07/19 at [address] Amended: Links added.
[2019-11-07] MEDS: clindamycin 600mg/D5W 50ml 50 ML IV SCH (16:19)
[2019-11-07] MEDS: acetaminophen 325mg tablet OGT SCH (20:19)
[2019-11-07] MEDS: heparin 10,000 units/1 ML INJ IV PRN (20:46)
--- NOTE | 2019-11-07 20:50 | NUR ---
Spoke with studio operations engineer in charge regarding current PTT result of 38. Rate will increase from 1900 to 2100 units, but we will hold off on the 4000 unit bolus for now considering pt had a lumbar puncture today. Will continue to monitor pt and recheck PTT in 6 hours. survey worker will inform MARCO ANTONIO Lake.
[2019-11-08] VITALS (23 sets, daily range): BP systolic 86–136; BP diastolic 47–89
[2019-11-08] MEDS: NAFCILLIN IV SCH ×3 (00:42→07:25)
[2019-11-08] MEDS: NORMAL SALINE IV SCH ×3 (00:42→07:25)
[2019-11-08] MEDS: CISatracurium besylate inj. 100 MG in normal saline 100ml IV soln 90 ML IV SCH ×3 (00:45→08:02)
[2019-11-08] MEDS: FENTANYL-0.9 % NACL/PF 100 ML IV PRN ×6 (00:53→23:21)
[2019-11-08] MEDS: amiodarone/D5 360MG/200ML BAG 200 ML IV SCH ×4 (00:55→18:41)
[2019-11-08] MEDS: clindamycin 600mg/D5W 50ml 50 ML IV SCH ×2 (00:56→07:26)
[2019-11-08] MEDS: mineral oil/petrolatum ophthal oint EACHEYE SCH ×4 (02:16→19:55)
[2019-11-08] MEDS: acetaminophen 325mg tablet OGT SCH ×4 (02:17→19:55)
[2019-11-08 02:33] LABS: BASOPHILS % (AUTO) 0.7 % (0-1); EOSINOPHILS # (AUTO) 0.1 X10'3 (0-0.9); EOSINOPHILS % (AUTO) 2.2 % (0-6); HEMATOCRIT 38.6 % (42.0-52.0); HEMOGLOBIN 13.3 g/dl (14.0-17.9); LYMPHOCYTES # (AUTO) 0.4 X10'3 (1.1-4.8); LYMPHOCYTES % (AUTO) 7.4 % (21-51); MEAN CORPUSCULAR HEMOGLOBIN 34.4 PG (27.0-31.0); MEAN CORPUSCULAR HGB CONC 34.3 g/dL (33.0-36.5); MEAN PLATELET VOLUME 10.8 FL (7.4-10.4); MONOCYTES # (AUTO) 0.5 X10'3 (0-0.9); MONOCYTES % (AUTO) 8.3 % (2-12); NEUTROPHILS # (AUTO) 4.9 X10'3 (1.8-7.7); NEUTROPHILS % (AUTO) 81.4 % (42-75); PLATELET COUNT 180 X10'3 (140-440); RED BLOOD COUNT 3.86 X10'6 (4.70-6.10); RED CELL DISTRIBUTION WIDTH 15.5 % (11.5-14.5)
[2019-11-08 02:51] LABS: ALANINE AMINOTRANSFERASE 65 U/L (12-78); ALBUMIN 2.2 G/DL (3.4-5.0); ALBUMIN/GLOBULIN RATIO 0.6 (1.1-1.5); ALKALINE PHOSPHATASE 50 IU/L (46-116); ANION GAP 5 (8-16); ASPARTATE AMINO TRANSFERASE 36 U/L (10-37); BILIRUBIN,TOTAL 1.6 MG/DL (0.1-1.0); BLOOD UREA NITROGEN 30 MG/DL (7-18); BUN/CREATININE RATIO 18.3 (5.4-32.0); CALCIUM 8.3 MG/DL (8.5-10.1); CHLORIDE 100 MMOL/L (99-107); CREATINE KINASE 210 U/L (39-308); CREATININE 1.64 MG/DL (0.60-1.10); GLUCOSE 120 MG/DL (70-104); MAGNESIUM 1.5 MG/DL (1.5-2.4); PHOSPHORUS 1.9 MG/DL (2.3-4.5); SODIUM 142 MMOL/L (135-145); TOTAL PROTEIN 5.8 G/DL (6.4-8.2); eGFR 45 ML/MIN
[2019-11-08 02:53] LABS: POTASSIUM 2.3 MMOL/L (3.5-5.1)
[2019-11-08] MEDS: potassium Cl 20mEq/100mL bag 100 ML IV PRN ×10 (02:56→21:47)
[2019-11-08] MEDS: ciprofloxacin lact 400MG/200ML 200 ML IV SCH (02:56)
[2019-11-08] MEDS: ipratropium/albuterol 3ml nebule NEB SCH ×6 (03:01→23:07)
[2019-11-08 03:30] LABS: ABG BASE EXCESS 10.8 mmol/L (-2.0-3.0); ABG HCO3 30.6 mmol/L (22.0-26.0); ABG OXYGEN SATURATION 92.3 % (95-98); ABG PCO2 (T) 26.6 mmHg (35.0-45.0); ABG PH (T) 7.679 (7.350-7.450); ABG PO2 (T) 50.6 mmHg (83-108); ALLEN'S TEST POSITIVE; FCOHb 0.6 % (0.5-1.5); FMetHb 0.3 % (0.3-1.12); FO2Hb 91.5 % (94-100); PEEP 5 cm H2O; RESPIRATORY RATE 22 b/min; TIDAL VOLUME 500 mL; TOTAL HEMOGLOBIN 13.2 G/dl (14.0-17.9)
[2019-11-08 04:01] LABS: PLATELET ESTIMATE NORMAL
[2019-11-08 05:13] LABS: COMPLEMENT C3, SERUM 133 mg/dL (82-167); COMPLEMENT C4, SERUM 42 mg/dL (14-44)
[2019-11-08] MEDS: sodium bicarbonate (8.4%) inj. 100 MEQ in dextrose 5%-water 1,000 ML IV SCH ×2 (05:56→15:45)
[2019-11-08] MEDS: midazolam 100mg in NS 100ml 100 ML IV PRN ×3 (05:56→16:55)
[2019-11-08] MEDS: carvedilol 6.25mg tablet OGT SCH ×2 (07:23→19:55)
[2019-11-08] MEDS: pantoprazole 40 MG vial IV SCH (07:23)
[2019-11-08] MEDS: furosemide 10 MG/1 ML 10ml inj IV SCH ×3 (07:23→20:16)
[2019-11-08] MEDS: baclofen 10mg tablet PO SCH ×2 (07:23→15:45)
[2019-11-08] MEDS: aspirin 81mg tab.chew OGT SCH (07:24)
[2019-11-08] MEDS: lactobacillus rhamnosus 10,000 MMU CELLS/CAPSULE OGT SCH ×2 (07:24→19:55)
[2019-11-08] MEDS: amLODIPine 5mg tablet OGT SCH (08:00)
[2019-11-08] MEDS: K, MAG and/or Phos replacement - Verify level? MC SCH (08:00)
[2019-11-08 08:30] LABS: PARTIAL THROMBOPLASTIN TIME 85 SECONDS (22-32)
[2019-11-08] MEDS ORDERED: sodium phosphate inj. 30 MMOL in dextrose 5%-water 250 ML IV ONE (10:30)
[2019-11-08] MEDS ORDERED: sodium phosphate inj. 15 MMOL in dextrose 5%-water 250 ML IV ONE (10:30)
--- NOTE | 2019-11-08 11:54 | NUR ---
Reassessment: Pt's tube feeding remains on hold since 11/06, currently not meeting nutrient needs. Per bedside RN, TF to restart today at 30ml/hr. Per MD note, pt to receive trach on Wednesday and PEG Wednesday. Per RN, pt with devendra of 8 and with pressure ulcer to right and posterior buttocks. LBM 11/08. Will continue to monitor. Recommend: 1. Continuous tube feeding with Vital High Protein at goal rate 95 ml/hr will provide total volume 2280 ml, 2280 cals, 200 g protein, and 1915 ml free water. 2. When tube feedings resume continue additional water flush 250 ml q 4 hours 3. Daily weight 4. Prealbumin q wednesday and 5. routine bowel care Addendum: 11/08/19 at 1154 by Wing Cara AVERY Amended: Links added. Addendum: 11/08/19 at [address] BENNIE Tucker
--- NOTE | 2019-11-08 12:31 | NUR ---
Procalcitonin 10.[address] Goyal, new order to check another level on 11/09/2019, Order noted.
[2019-11-08] MEDS: heparin 25,000 UNIT/250ml bag 250 ML IV SCH (12:49)
[2019-11-08] MEDS: spironolactone 25 MG tablet OGT SCH ×2 (13:36→20:16)
[2019-11-08 14:59] LABS: PARTIAL THROMBOPLASTIN TIME 60 SECONDS (22-32)
--- NOTE | 2019-11-08 15:30 | NUR ---
[facility] LINE: REF# [id number] LOT# [id number] EXP: 05/27/2020
--- NOTE | 2019-11-08 15:34 | NUR ---
rt called stat, flowmeter retaining piece failed and flowmeter broke off vent. pt. bagged while rt replaced flowmeter. pt placed back on vent vital signs wnl. Addendum: 11/08/19 at 1535 by Antonio Mcqueen RT Amended: Links added.
[2019-11-08] MEDS: ceFAZolin 1GM/D5W- ADD-VANTAGE 50 ML IV SCH (16:09)
[2019-11-08 18:15] LABS: ANTINUCLEAR ANTIBODIES Negative (Negative)
--- NOTE | 2019-11-08 18:40 | NUR ---
Patient in room CICU 2008. I have received report from Sally HERNANDEZ and had the opportunity to ask questions and assume patient care. Patient intubated/sedated
[2019-11-08 21:23] LABS: PARTIAL THROMBOPLASTIN TIME 55 SECONDS (22-32)
[2019-11-09] VITALS (24 sets, daily range): BP systolic 90–166; BP diastolic 54–106
[2019-11-09] MEDS: baclofen 10mg tablet PO SCH ×4 (00:39→23:54)
[2019-11-09] MEDS: ceFAZolin 1GM/D5W- ADD-VANTAGE 50 ML IV SCH ×2 (00:39→08:30)
[2019-11-09] MEDS: amiodarone/D5 360MG/200ML BAG 200 ML IV SCH ×4 (00:45→18:57)
[2019-11-09] MEDS: midazolam 100mg in NS 100ml 100 ML IV PRN ×4 (01:32→23:51)
[2019-11-09] MEDS: heparin 25,000 UNIT/250ml bag 250 ML IV SCH (01:47)
[2019-11-09] MEDS: acetaminophen 325mg tablet OGT SCH ×4 (02:08→20:11)
[2019-11-09] MEDS: mineral oil/petrolatum ophthal oint EACHEYE SCH ×4 (02:08→20:13)
[2019-11-09] MEDS: ipratropium/albuterol 3ml nebule NEB SCH ×6 (02:45→23:26)
[2019-11-09 02:47] LABS: BASOPHILS % (AUTO) 0.8 % (0-1); EOSINOPHILS # (AUTO) 0.1 X10'3 (0-0.9); EOSINOPHILS % (AUTO) 2.7 % (0-6); HEMATOCRIT 36.4 % (42.0-52.0); HEMOGLOBIN 12.4 g/dl (14.0-17.9); LYMPHOCYTES # (AUTO) 0.8 X10'3 (1.1-4.8); LYMPHOCYTES % (AUTO) 15.5 % (21-51); MEAN CORPUSCULAR HEMOGLOBIN 34.4 PG (27.0-31.0); MEAN CORPUSCULAR VOLUME 101.2 FL (78-98); MEAN PLATELET VOLUME 10.2 FL (7.4-10.4); MONOCYTES # (AUTO) 0.5 X10'3 (0-0.9); MONOCYTES % (AUTO) 9.5 % (2-12); NEUTROPHILS # (AUTO) 3.7 X10'3 (1.8-7.7); NEUTROPHILS % (AUTO) 71.5 % (42-75); PLATELET COUNT 222 X10'3 (140-440); RED CELL DISTRIBUTION WIDTH 15.6 % (11.5-14.5); WHITE BLOOD COUNT 5.2 X10'3 (4.5-11.0)
[2019-11-09 02:56] LABS: ABG BASE EXCESS 7.4 mmol/L (-2.0-3.0); ABG HCO3 31.9 mmol/L (22.0-26.0); ABG OXYGEN SATURATION 96.2 % (95-98); ABG PCO2 (T) 46.3 mmHg (35.0-45.0); ABG PO2 (T) 83.7 mmHg (83-108); FCOHb 0.2 % (0.5-1.5); FMetHb 0.1 % (0.3-1.12); FO2Hb 95.9 % (94-100); PATIENT TEMPERATURE 37.8; PEEP 5 cm H2O; RESPIRATORY RATE 18 b/min; TIDAL VOLUME 500 mL; TOTAL HEMOGLOBIN 13.1 G/dl (14.0-17.9)
[2019-11-09 03:06] LABS: ALANINE AMINOTRANSFERASE 58 U/L (12-78); ALBUMIN 2.2 G/DL (3.4-5.0); ALBUMIN/GLOBULIN RATIO 0.6 (1.1-1.5); ALKALINE PHOSPHATASE 53 IU/L (46-116); ANION GAP 4 (8-16); ASPARTATE AMINO TRANSFERASE 38 U/L (10-37); BLOOD UREA NITROGEN 25 MG/DL (7-18); BUN/CREATININE RATIO 13.5 (5.4-32.0); CALCIUM 8.6 MG/DL (8.5-10.1); CHLORIDE 102 MMOL/L (99-107); CREATINE KINASE 139 U/L (39-308); CREATININE 1.85 MG/DL (0.60-1.10); GLUCOSE 107 MG/DL (70-104); MAGNESIUM 1.7 MG/DL (1.5-2.4); PHOSPHORUS 4.7 MG/DL (2.3-4.5); POTASSIUM 3.2 MMOL/L (3.5-5.1); PREALBUMIN 12.7 MG/DL (19-36); SODIUM 142 MMOL/L (135-145); TOTAL CARBON DIOXIDE 36.4 MMOL/L (24-32); TOTAL PROTEIN 5.8 G/DL (6.4-8.2); eGFR 39 ML/MIN
[2019-11-09] MEDS: FENTANYL-0.9 % NACL/PF 100 ML IV PRN ×3 (03:22→20:10)
[2019-11-09] MEDS: POTASSIUM BICARB 20meq eff tab 20 MEQ TABLET.EFF OGT PRN ×5 (03:23→23:55)
[2019-11-09] MEDS: sodium bicarbonate (8.4%) inj. 100 MEQ in dextrose 5%-water 1,000 ML IV SCH (03:30)
[2019-11-09] MEDS: potassium Cl 20mEq/100mL bag 100 ML IV PRN ×2 (03:55→04:58)
--- NOTE | 2019-11-09 06:34 | NUR ---
Problems reprioritized. Patient report given, questions answered & plan of care reviewed with Liana HERNANDEZ.
[2019-11-09] MEDS: K, MAG and/or Phos replacement - Verify level? MC SCH (08:00)
[2019-11-09] MEDS: furosemide 10 MG/1 ML 10ml inj IV SCH ×3 (08:14→20:11)
[2019-11-09] MEDS: pantoprazole 40 MG vial IV SCH (08:14)
[2019-11-09] MEDS: amLODIPine 5mg tablet OGT SCH (08:17)
[2019-11-09] MEDS: lactobacillus rhamnosus 10,000 MMU CELLS/CAPSULE OGT SCH ×2 (08:17→20:11)
[2019-11-09] MEDS: aspirin 81mg tab.chew OGT SCH (08:17)
[2019-11-09] MEDS: carvedilol 6.25mg tablet OGT SCH ×2 (08:17→20:11)
[2019-11-09] MEDS: spironolactone 25 MG tablet OGT SCH ×3 (08:17→20:11)
[2019-11-09] MEDS: piperacillin/tazo 3.375gm/50ml 50 ML IV SCH ×3 (10:05→23:54)
--- NOTE | 2019-11-09 12:46 | NUR ---
Reassessing mental status while repositioning /. Pt. opened eyes, looked at this nurse, and squeezed hand per command.
--- NOTE | 2019-11-09 14:12 | NUR ---
F/u: Pt TF has resumed at 35ml/hr, per registered phlebotomist part time during critical care rounds, to advance to goal of 95ml/hr, d/w bedside RN. Will continue to monitor. Addendum: 11/09/19 at 1412 by Wing Cara AVERY Amended: Links added. Addendum: 11/09/19 at [address] BENNIE agree with note
[2019-11-09] MEDS ORDERED: rocuronium 10mg/ml inj IV ONE (17:25)
--- NOTE | 2019-11-09 18:27 | NUR ---
Problems reprioritized. Patient report given, questions answered & plan of care reviewed with Leeanne HERNANDEZ.
[2019-11-10] VITALS (24 sets, daily range): BP systolic 90–117; BP diastolic 55–77
[2019-11-10] MEDS: amiodarone/D5 360MG/200ML BAG 200 ML IV SCH ×5 (00:55→23:31)
[2019-11-10] MEDS: mineral oil/petrolatum ophthal oint EACHEYE SCH ×4 (01:57→20:36)
[2019-11-10] MEDS: acetaminophen 325mg tablet OGT SCH ×4 (01:58→20:37)
[2019-11-10] MEDS: FENTANYL-0.9 % NACL/PF 100 ML IV PRN ×2 (01:58→23:31)
[2019-11-10 02:34] LABS: BASOPHILS % (AUTO) 0.9 % (0-1); EOSINOPHILS # (AUTO) 0.1 X10'3 (0-0.9); EOSINOPHILS % (AUTO) 1.5 % (0-6); HEMATOCRIT 35.9 % (42.0-52.0); HEMOGLOBIN 12.4 g/dl (14.0-17.9); LYMPHOCYTES # (AUTO) 0.5 X10'3 (1.1-4.8); LYMPHOCYTES % (AUTO) 12.8 % (21-51); MEAN CORPUSCULAR HEMOGLOBIN 34.5 PG (27.0-31.0); MEAN CORPUSCULAR HGB CONC 34.4 g/dL (33.0-36.5); MEAN CORPUSCULAR VOLUME 100.4 FL (78-98); MONOCYTES # (AUTO) 0.6 X10'3 (0-0.9); MONOCYTES % (AUTO) 14.7 % (2-12); NEUTROPHILS # (AUTO) 2.6 X10'3 (1.8-7.7); NEUTROPHILS % (AUTO) 70.1 % (42-75); PLATELET COUNT 268 X10'3 (140-440); RED BLOOD COUNT 3.58 X10'6 (4.70-6.10); RED CELL DISTRIBUTION WIDTH 15.9 % (11.5-14.5); WHITE BLOOD COUNT 3.8 X10'3 (4.5-11.0)
[2019-11-10] MEDS: ipratropium/albuterol 3ml nebule NEB SCH ×6 (02:54→23:48)
[2019-11-10 02:55] LABS: ALANINE AMINOTRANSFERASE 52 U/L (12-78); ALBUMIN 2.1 G/DL (3.4-5.0); ALBUMIN/GLOBULIN RATIO 0.6 (1.1-1.5); ALKALINE PHOSPHATASE 59 IU/L (46-116); ANION GAP 0 (8-16); ASPARTATE AMINO TRANSFERASE 38 U/L (10-37); BILIRUBIN,TOTAL 0.9 MG/DL (0.1-1.0); BLOOD UREA NITROGEN 24 MG/DL (7-18); BUN/CREATININE RATIO 13.3 (5.4-32.0); CALCIUM 8.5 MG/DL (8.5-10.1); CHLORIDE 103 MMOL/L (99-107); CREATINE KINASE 67 U/L (39-308); CREATININE 1.81 MG/DL (0.60-1.10); GLUCOSE 103 MG/DL (70-104); MAGNESIUM 1.8 MG/DL (1.5-2.4); PHOSPHORUS 3.1 MG/DL (2.3-4.5); POTASSIUM 3.9 MMOL/L (3.5-5.1); SODIUM 140 MMOL/L (135-145); TOTAL CARBON DIOXIDE 36.9 MMOL/L (24-32); TOTAL PROTEIN 5.9 G/DL (6.4-8.2); eGFR 40 ML/MIN
[2019-11-10 03:10] LABS: ABG BASE EXCESS 9.5 mmol/L (-2.0-3.0); ABG HCO3 32.9 mmol/L (22.0-26.0); ABG OXYGEN SATURATION 93.2 % (95-98); ABG PCO2 (T) 38.9 mmHg (35.0-45.0); ABG PH (T) 7.543 (7.350-7.450); ABG PO2 (T) 55.3 mmHg (83-108); ALLEN'S TEST POSITIVE; FCOHb 0.5 % (0.5-1.5); FMetHb 0.1 % (0.3-1.12); FO2Hb 92.6 % (94-100); PATIENT TEMPERATURE 36.3; PEEP 5 cm H2O; RESPIRATORY RATE 18 b/min; TIDAL VOLUME 500 mL; TOTAL HEMOGLOBIN 13.9 G/dl (14.0-17.9)
[2019-11-10] MEDS: midazolam 100mg in NS 100ml 100 ML IV PRN (05:30)
[2019-11-10] MEDS: K, MAG and/or Phos replacement - Verify level? MC SCH (08:00)
[2019-11-10] MEDS ORDERED: baclofen 10mg tablet OGT SCH (09:47)
[2019-11-10] MEDS: piperacillin/tazo 3.375gm/50ml 50 ML IV SCH ×3 (11:01→23:54)
[2019-11-10] MEDS: pantoprazole 40 MG vial IV SCH (11:01)
[2019-11-10] MEDS: carvedilol 6.25mg tablet OGT SCH ×2 (11:04→20:00)
[2019-11-10] MEDS: spironolactone 25 MG tablet OGT SCH ×3 (11:04→20:36)
[2019-11-10] MEDS: furosemide 10 MG/1 ML 10ml inj IV SCH ×3 (11:04→20:41)
[2019-11-10] MEDS: aspirin 81mg tab.chew OGT SCH (11:05)
[2019-11-10] MEDS: amLODIPine 5mg tablet OGT SCH (11:05)
--- NOTE | 2019-11-10 16:02 | NUR ---
Per Dr. Adams, please clearly communicate to any department doing procedures that this pt is suspicious for Malignant Hypothermia, and needs to be monitored as such.
--- NOTE | 2019-11-10 18:30 | NUR ---
Patient in room CICU 2008. I have received report from Art RN, and had the opportunity to ask questions and assume patient care.
[2019-11-10] MEDS: enoxaparin 40mg/0.4ml syringe SUBCUT SCH (20:40)
[2019-11-11] VITALS (23 sets, daily range): BP systolic 92–164; BP diastolic 56–101
[2019-11-11] MEDS: acetaminophen 325mg tablet OGT SCH ×4 (02:09→19:55)
[2019-11-11] MEDS: mineral oil/petrolatum ophthal oint EACHEYE SCH ×4 (02:09→19:55)
[2019-11-11 03:25] LABS: EOSINOPHILS # (AUTO) 0.1 X10'3 (0-0.9); EOSINOPHILS % (AUTO) 1.4 % (0-6); HEMATOCRIT 38.1 % (42.0-52.0); HEMOGLOBIN 12.9 g/dl (14.0-17.9); LYMPHOCYTES # (AUTO) 0.8 X10'3 (1.1-4.8); LYMPHOCYTES % (AUTO) 16.6 % (21-51); MEAN CORPUSCULAR HEMOGLOBIN 33.9 PG (27.0-31.0); MEAN CORPUSCULAR HGB CONC 33.8 g/dL (33.0-36.5); MEAN CORPUSCULAR VOLUME 100.4 FL (78-98); MEAN PLATELET VOLUME 9.6 FL (7.4-10.4); MONOCYTES # (AUTO) 0.7 X10'3 (0-0.9); MONOCYTES % (AUTO) 13.6 % (2-12); NEUTROPHILS # (AUTO) 3.2 X10'3 (1.8-7.7); NEUTROPHILS % (AUTO) 67.4 % (42-75); PLATELET COUNT 316 X10'3 (140-440); RED CELL DISTRIBUTION WIDTH 15.9 % (11.5-14.5); WHITE BLOOD COUNT 4.8 X10'3 (4.5-11.0)
[2019-11-11 03:32] LABS: ALANINE AMINOTRANSFERASE 44 U/L (12-78); ALBUMIN 2.2 G/DL (3.4-5.0); ALBUMIN/GLOBULIN RATIO 0.5 (1.1-1.5); ALKALINE PHOSPHATASE 68 IU/L (46-116); ANION GAP 3 (8-16); ASPARTATE AMINO TRANSFERASE 38 U/L (10-37); BILIRUBIN,TOTAL 0.9 MG/DL (0.1-1.0); BLOOD UREA NITROGEN 23 MG/DL (7-18); BUN/CREATININE RATIO 12.2 (5.4-32.0); CALCIUM 8.7 MG/DL (8.5-10.1); CHLORIDE 103 MMOL/L (99-107); CREATINE KINASE 123 U/L (39-308); CREATININE 1.88 MG/DL (0.60-1.10); GLUCOSE 89 MG/DL (70-104); PHOSPHORUS 3.3 MG/DL (2.3-4.5); POTASSIUM 3.4 MMOL/L (3.5-5.1); SODIUM 142 MMOL/L (135-145); TOTAL CARBON DIOXIDE 36.3 MMOL/L (24-32); TOTAL PROTEIN 6.3 G/DL (6.4-8.2); eGFR 39 ML/MIN
[2019-11-11] MEDS: potassium Cl 20mEq/100mL bag 100 ML IV PRN ×2 (03:59→05:06)
[2019-11-11] MEDS: ipratropium/albuterol 3ml nebule NEB SCH ×6 (04:01→23:11)
[2019-11-11 05:06] LABS: ABG BASE EXCESS 7.2 mmol/L (-2.0-3.0); ABG HCO3 31.8 mmol/L (22.0-26.0); ABG OXYGEN SATURATION 92.8 % (95-98); ABG PCO2 (T) 47.1 mmHg (35.0-45.0); ABG PH (T) 7.451 (7.350-7.450); ABG PO2 (T) 65.3 mmHg (83-108); ALLEN'S TEST POSITIVE; FCOHb 0.3 % (0.5-1.5); FO2Hb 92.5 % (94-100); PATIENT TEMPERATURE 38.1; PEEP 5 cm H2O; RESPIRATORY RATE 18 b/min; TIDAL VOLUME 500 mL; TOTAL HEMOGLOBIN 13.3 G/dl (14.0-17.9)
[2019-11-11] MEDS: midazolam 100mg in NS 100ml 100 ML IV PRN ×2 (05:06→19:56)
--- NOTE | 2019-11-11 06:48 | NUR ---
Problems reprioritized. Patient report given, questions answered & plan of care reviewed with Art RN.
[2019-11-11] MEDS: FENTANYL-0.9 % NACL/PF 100 ML IV PRN ×2 (06:50→15:11)
[2019-11-11] MEDS: amiodarone/D5 360MG/200ML BAG 200 ML IV SCH ×3 (07:21→19:54)
[2019-11-11] MEDS: piperacillin/tazo 3.375gm/50ml 50 ML IV SCH ×2 (07:34→17:16)
[2019-11-11] MEDS: pantoprazole 40 MG vial IV SCH (07:34)
[2019-11-11] MEDS: furosemide 10 MG/1 ML 10ml inj IV SCH ×3 (07:35→21:01)
[2019-11-11] MEDS: carvedilol 6.25mg tablet OGT SCH ×2 (07:35→19:55)
[2019-11-11] MEDS: spironolactone 25 MG tablet OGT SCH ×3 (07:35→21:00)
[2019-11-11] MEDS: amLODIPine 5mg tablet OGT SCH (07:35)
[2019-11-11] MEDS: K, MAG and/or Phos replacement - Verify level? MC SCH (07:37)
[2019-11-11] MEDS: enoxaparin 40mg/0.4ml syringe SUBCUT SCH ×2 (07:38→19:56)
[2019-11-11] MEDS: aspirin 81mg tab.chew OGT SCH (10:30)
--- NOTE | 2019-11-11 10:58 | NUR ---
Called Dr. Amado regarding estimate time for trach surgery. He will call back after he checks some scheduling
[2019-11-11 11:09] LABS: CRYPTOCOCCUS ANTIGEN, CSF Negative (Negative)
--- NOTE | 2019-11-11 11:41 | NUR ---
Turn amio gtt off 6 hours after first dose of PO amio
--- NOTE | 2019-11-11 13:24 | NUR ---
Tube feeding started at 35ml per hour
--- NOTE | 2019-11-11 18:03 | NUR ---
pt had an ekg change. obtaining 12 lead
[2019-11-12] VITALS (24 sets, daily range): BP systolic 86–156; BP diastolic 55–99
[2019-11-12] MEDS: amiodarone/D5 360MG/200ML BAG 200 ML IV SCH ×4 (00:07→19:24)
[2019-11-12] MEDS: piperacillin/tazo 3.375gm/50ml 50 ML IV SCH ×2 (00:07→08:55)
[2019-11-12 02:34] LABS: BASOPHILS % (AUTO) 0.8 % (0-1); EOSINOPHILS # (AUTO) 0.1 X10'3 (0-0.9); EOSINOPHILS % (AUTO) 1.7 % (0-6); HEMATOCRIT 37.4 % (42.0-52.0); HEMOGLOBIN 12.9 g/dl (14.0-17.9); LYMPHOCYTES # (AUTO) 0.9 X10'3 (1.1-4.8); LYMPHOCYTES % (AUTO) 17.5 % (21-51); MEAN CORPUSCULAR HEMOGLOBIN 34.5 PG (27.0-31.0); MEAN CORPUSCULAR HGB CONC 34.4 g/dL (33.0-36.5); MEAN CORPUSCULAR VOLUME 100.2 FL (78-98); MEAN PLATELET VOLUME 8.7 FL (7.4-10.4); MONOCYTES # (AUTO) 0.8 X10'3 (0-0.9); MONOCYTES % (AUTO) 15.5 % (2-12); NEUTROPHILS # (AUTO) 3.4 X10'3 (1.8-7.7); NEUTROPHILS % (AUTO) 64.5 % (42-75); PLATELET COUNT 331 X10'3 (140-440); RED BLOOD COUNT 3.73 X10'6 (4.70-6.10); RED CELL DISTRIBUTION WIDTH 15.9 % (11.5-14.5); WHITE BLOOD COUNT 5.3 X10'3 (4.5-11.0)
[2019-11-12] MEDS: acetaminophen 325mg tablet OGT SCH ×4 (02:38→19:33)
[2019-11-12] MEDS: mineral oil/petrolatum ophthal oint EACHEYE SCH ×4 (02:38→19:33)
[2019-11-12 03:00] LABS: ALANINE AMINOTRANSFERASE 35 U/L (12-78); ALBUMIN 2.2 G/DL (3.4-5.0); ALBUMIN/GLOBULIN RATIO 0.5 (1.1-1.5); ALKALINE PHOSPHATASE 66 IU/L (46-116); ANION GAP 6 (8-16); ASPARTATE AMINO TRANSFERASE 32 U/L (10-37); BILIRUBIN,TOTAL 0.9 MG/DL (0.1-1.0); BLOOD UREA NITROGEN 24 MG/DL (7-18); BUN/CREATININE RATIO 12.9 (5.4-32.0); CHLORIDE 101 MMOL/L (99-107); CREATINE KINASE 105 U/L (39-308); CREATININE 1.86 MG/DL (0.60-1.10); GLUCOSE 93 MG/DL (70-104); MAGNESIUM 2.1 MG/DL (1.5-2.4); PHOSPHORUS 3.8 MG/DL (2.3-4.5); POTASSIUM 3.3 MMOL/L (3.5-5.1); SODIUM 140 MMOL/L (135-145); TOTAL PROTEIN 6.5 G/DL (6.4-8.2); eGFR 39 ML/MIN
[2019-11-12] MEDS: ipratropium/albuterol 3ml nebule NEB SCH ×6 (03:05→23:12)
[2019-11-12] MEDS: POTASSIUM BICARB 20meq eff tab 20 MEQ TABLET.EFF OGT PRN ×3 (05:06→17:46)
[2019-11-12] MEDS: FENTANYL-0.9 % NACL/PF 100 ML IV PRN (05:06)
[2019-11-12 05:36] LABS: ABG BASE EXCESS 7.1 mmol/L (-2.0-3.0); ABG HCO3 31.2 mmol/L (22.0-26.0); ABG OXYGEN SATURATION 94.4 % (95-98); ABG PCO2 (T) 43.8 mmHg (35.0-45.0); ABG PH (T) 7.473 (7.350-7.450); ABG PO2 (T) 72.4 mmHg (83-108); ALLEN'S TEST POSITIVE; FCOHb 0.7 % (0.5-1.5); FO2Hb 93.7 % (94-100); PATIENT TEMPERATURE 37.7; PEEP 5 cm H2O; TOTAL HEMOGLOBIN 13.3 G/dl (14.0-17.9)
--- NOTE | 2019-11-12 06:45 | NUR ---
Report received from MARY Fallon
[2019-11-12] MEDS: midazolam 100mg in NS 100ml 100 ML IV PRN ×3 (07:21→23:48)
[2019-11-12] MEDS: K, MAG and/or Phos replacement - Verify level? MC SCH (08:00)
[2019-11-12] MEDS: pantoprazole 40 MG vial IV SCH (08:56)
[2019-11-12] MEDS: amLODIPine 5mg tablet OGT SCH (08:56)
[2019-11-12] MEDS: carvedilol 6.25mg tablet OGT SCH ×2 (08:56→20:00)
[2019-11-12] MEDS: furosemide 10 MG/1 ML 10ml inj IV SCH ×3 (08:56→20:02)
[2019-11-12] MEDS: aspirin 81mg tab.chew OGT SCH (08:57)
[2019-11-12] MEDS: amiodarone 200mg tablet PO SCH (08:57)
[2019-11-12] MEDS: enoxaparin 40mg/0.4ml syringe SUBCUT SCH ×2 (08:57→19:34)
[2019-11-12] MEDS: spironolactone 25 MG tablet OGT SCH ×3 (09:12→20:02)
[2019-11-12] MEDS: piperacillin/tazo 4.5gm/100ml 100 ML IV SCH ×2 (16:08→23:56)
[2019-11-12] MEDS: dexmedetomidin/NS 400mcg/100ml 100 ML IV SCH ×2 (16:08→22:04)
--- NOTE | 2019-11-12 18:31 | NUR ---
Report given to MARY Mayorga
--- NOTE | 2019-11-12 18:32 | NUR ---
Patient in room CICU 2008. I have received report from Heena HERNANDEZ and had the opportunity to ask questions and assume patient care. Patient intubated and lightly sedated. Currently saturating at 100% on CPAP mode on 30% FIO2. Patient not opening eyes with stimulation or following commands at this time. Pupils reactive. Will continue to monitor patient closely.
[2019-11-13] VITALS (24 sets, daily range): BP systolic 102–152; BP diastolic 67–105
[2019-11-13] MEDS: POTASSIUM BICARB 20meq eff tab 20 MEQ TABLET.EFF OGT PRN (00:46)
[2019-11-13] MEDS: potassium Cl 20mEq/100mL bag 100 ML IV PRN ×2 (00:47→01:42)
[2019-11-13] MEDS: dexmedetomidin/NS 400mcg/100ml 100 ML IV SCH ×4 (00:51→21:36)
[2019-11-13] MEDS: amiodarone/D5 360MG/200ML BAG 200 ML IV SCH (01:49)
[2019-11-13 03:07] LABS: EOSINOPHILS # (AUTO) 0.1 X10'3 (0-0.9); HEMOGLOBIN 13.7 g/dl (14.0-17.9)
[2019-11-13 03:09] LABS: BASOPHILS # (AUTO) 0.1 X10'3 (0-0.2); BASOPHILS % (AUTO) 1.3 % (0-1); HEMATOCRIT 39.8 % (42.0-52.0); LYMPHOCYTES # (AUTO) 0.9 X10'3 (1.1-4.8); LYMPHOCYTES % (AUTO) 17.7 % (21-51); MEAN CORPUSCULAR HEMOGLOBIN 33.9 PG (27.0-31.0); MEAN CORPUSCULAR HGB CONC 34.4 g/dL (33.0-36.5); MEAN CORPUSCULAR VOLUME 98.8 FL (78-98); MEAN PLATELET VOLUME 8.8 FL (7.4-10.4); MONOCYTES # (AUTO) 0.6 X10'3 (0-0.9); MONOCYTES % (AUTO) 12.9 % (2-12); NEUTROPHILS # (AUTO) 3.3 X10'3 (1.8-7.7); NEUTROPHILS % (AUTO) 66.1 % (42-75); PLATELET COUNT 389 X10'3 (140-440); RED BLOOD COUNT 4.03 X10'6 (4.70-6.10); RED CELL DISTRIBUTION WIDTH 15.5 % (11.5-14.5); WHITE BLOOD COUNT 4.9 X10'3 (4.5-11.0)
[2019-11-13 03:13] LABS: ALANINE AMINOTRANSFERASE 32 U/L (12-78); ALBUMIN 2.3 G/DL (3.4-5.0); ALBUMIN/GLOBULIN RATIO 0.5 (1.1-1.5); ALKALINE PHOSPHATASE 77 IU/L (46-116); ANION GAP 3 (8-16); ASPARTATE AMINO TRANSFERASE 26 U/L (10-37); BILIRUBIN,TOTAL 0.9 MG/DL (0.1-1.0); BLOOD UREA NITROGEN 26 MG/DL (7-18); BUN/CREATININE RATIO 13.7 (5.4-32.0); CALCIUM 9.2 MG/DL (8.5-10.1); CHLORIDE 101 MMOL/L (99-107); GLUCOSE 120 MG/DL (70-104); MAGNESIUM 2.3 MG/DL (1.5-2.4); PHOSPHORUS 4.3 MG/DL (2.3-4.5); PREALBUMIN 15.6 MG/DL (19-36); SODIUM 140 MMOL/L (135-145); TOTAL PROTEIN 6.9 G/DL (6.4-8.2); eGFR 38 ML/MIN
[2019-11-13] MEDS: ipratropium/albuterol 3ml nebule NEB SCH ×6 (03:23→23:16)
[2019-11-13 03:41] LABS: ABG BASE EXCESS 8.1 mmol/L (-2.0-3.0); ABG HCO3 32.7 mmol/L (22.0-26.0); ABG OXYGEN SATURATION 92.5 % (95-98); ABG PCO2 (T) 46.3 mmHg (35.0-45.0); ABG PH (T) 7.469 (7.350-7.450); ABG PO2 (T) 59.6 mmHg (83-108); ALLEN'S TEST POSITIVE; FCOHb 0.5 % (0.5-1.5); FMetHb 0.1 % (0.3-1.12); FO2Hb 91.9 % (94-100); PATIENT TEMPERATURE 37.6; PEEP 5 cm H2O; TOTAL HEMOGLOBIN 14.3 G/dl (14.0-17.9)
[2019-11-13] MEDS: acetaminophen 325mg tablet OGT SCH ×4 (03:50→19:33)
[2019-11-13] MEDS: mineral oil/petrolatum ophthal oint EACHEYE SCH ×4 (03:50→19:33)
--- NOTE | 2019-11-13 06:26 | NUR ---
Problems reprioritized. Patient report given, questions answered & plan of care reviewed with Heena HERNANDEZ.
--- NOTE | 2019-11-13 06:27 | NUR ---
Patient in room CICU 2008. I have received report from MARY Mayorga and had the opportunity to ask questions and assume patient care.
[2019-11-13] MEDS: K, MAG and/or Phos replacement - Verify level? MC SCH (08:00)
[2019-11-13] MEDS: furosemide 10 MG/1 ML 10ml inj IV SCH ×3 (08:55→19:54)
[2019-11-13] MEDS: pantoprazole 40 MG vial IV SCH (08:55)
[2019-11-13] MEDS: enoxaparin 40mg/0.4ml syringe SUBCUT SCH ×2 (08:55→19:32)
[2019-11-13] MEDS: amiodarone 200mg tablet PO SCH (08:55)
[2019-11-13] MEDS: amLODIPine 5mg tablet OGT SCH (08:56)
[2019-11-13] MEDS: spironolactone 25 MG tablet OGT SCH ×2 (08:56→15:08)
[2019-11-13] MEDS: carvedilol 6.25mg tablet OGT SCH ×2 (08:56→19:33)
[2019-11-13] MEDS: aspirin 81mg tab.chew OGT SCH (08:56)
[2019-11-13] MEDS: piperacillin/tazo 3.375gm/50ml 50 ML IV SCH ×2 (08:57→15:07)
[2019-11-13] MEDS: midazolam 100mg in NS 100ml 100 ML IV PRN (09:11)
[2019-11-13] MEDS: erythromycin base 250mg tablet PO SCH ×2 (15:08→19:32)
--- NOTE | 2019-11-13 16:35 | NUR ---
Reassessment: patient's tube feeding on hold since last night due to very high gastric residuals up to 550 ml, noted small BM daily since 11/04. Has rectal tube with minimal liquid stool output observed in patient's room. Not receiving bowel care due to prior diarrhea. Previously on fentanyl, high gastric residuals may be r/t prior fentanyl administration and with small BMs. Discussed at rounds with RN and MD. Per MD note erythromycin for gut motility. No longer pending trach and PEG. Has devendra of 11 and with pressure ulcer to right and posterior buttocks. LBM 11/13, small per rectal tube. Will continue to monitor. Recommend: 1. As medically indicated resume continuous tube feeding with Vital High Protein at goal rate 95 ml/hr will provide total volume 2280 ml, 2280 cals, 200 g protein, and 1915 ml free water. 2. When tube feedings resume continue additional water flush 250 ml q 4 hours 3. Daily weight 4. Prealbumin q wednesday and 5. routine bowel care Addendum: 11/13/19 at [address] Amended: Links added.
--- NOTE | 2019-11-13 18:21 | NUR ---
Problems reprioritized. Patient report given, questions answered & plan of care reviewed with MARY Mayorga.
--- NOTE | 2019-11-13 18:27 | NUR ---
Patient in room CICU 2008. I have received report from Heena HERNANDEZ and had the opportunity to ask questions and assume patient care. Patient intubated and lightly sedated. Saturations at 100% on 30% FIO2 on spontaneous ventilator mode. Patient breathing at 26 breaths/min. Will continue to monitor patient closely.
[2019-11-13] MEDS: FENTANYL-0.9 % NACL/PF 100 ML IV PRN (23:25)
[2019-11-14] VITALS (24 sets, daily range): BP systolic 95–149; BP diastolic 66–113
[2019-11-14] MEDS: piperacillin/tazo 3.375gm/50ml 50 ML IV SCH ×3 (00:24→15:37)
[2019-11-14] MEDS: midazolam 100mg in NS 100ml 100 ML IV PRN ×2 (00:39→19:33)
[2019-11-14] MEDS: ipratropium/albuterol 3ml nebule NEB SCH ×6 (02:34→23:04)
[2019-11-14] MEDS: mineral oil/petrolatum ophthal oint EACHEYE SCH ×4 (02:50→19:59)
[2019-11-14] MEDS: dexmedetomidin/NS 400mcg/100ml 100 ML IV SCH ×4 (02:50→19:33)
[2019-11-14 02:51] LABS: ABG OXYGEN SATURATION 95.6 % (95-98); ABG PCO2 (T) 42.9 mmHg (35.0-45.0); ABG PH (T) 7.492 (7.350-7.450); ABG PO2 (T) 75.2 mmHg (83-108); FCOHb 0.4 % (0.5-1.5); FMetHb 0.1 % (0.3-1.12); FO2Hb 95.1 % (94-100); PATIENT TEMPERATURE 37.5; PEEP 5 cm H2O; TIDAL VOLUME 531 mL; TOTAL HEMOGLOBIN 15.3 G/dl (14.0-17.9)
[2019-11-14] MEDS: acetaminophen 325mg tablet OGT SCH ×3 (03:01→13:36)
[2019-11-14] MEDS: erythromycin base 250mg tablet PO SCH ×4 (03:01→20:00)
[2019-11-14 04:17] LABS: BASOPHILS # (AUTO) 0.1 X10'3 (0-0.2); BASOPHILS % (AUTO) 1.1 % (0-1); EOSINOPHILS # (AUTO) 0.1 X10'3 (0-0.9); EOSINOPHILS % (AUTO) 1.4 % (0-6); HEMATOCRIT 42.9 % (42.0-52.0); HEMOGLOBIN 14.4 g/dl (14.0-17.9); LYMPHOCYTES # (AUTO) 1.1 X10'3 (1.1-4.8); LYMPHOCYTES % (AUTO) 22.2 % (21-51); MEAN CORPUSCULAR HEMOGLOBIN 33.4 PG (27.0-31.0); MEAN CORPUSCULAR HGB CONC 33.5 g/dL (33.0-36.5); MEAN CORPUSCULAR VOLUME 99.8 FL (78-98); MEAN PLATELET VOLUME 8.7 FL (7.4-10.4); MONOCYTES # (AUTO) 0.6 X10'3 (0-0.9); MONOCYTES % (AUTO) 12.4 % (2-12); NEUTROPHILS # (AUTO) 3.3 X10'3 (1.8-7.7); NEUTROPHILS % (AUTO) 62.9 % (42-75); PLATELET COUNT 445 X10'3 (140-440); RED CELL DISTRIBUTION WIDTH 16.3 % (11.5-14.5); WHITE BLOOD COUNT 5.2 X10'3 (4.5-11.0)
[2019-11-14 04:28] LABS: ALANINE AMINOTRANSFERASE 29 U/L (12-78); ALBUMIN 2.4 G/DL (3.4-5.0); ALBUMIN/GLOBULIN RATIO 0.5 (1.1-1.5); ALKALINE PHOSPHATASE 82 IU/L (46-116); ANION GAP 6 (8-16); ASPARTATE AMINO TRANSFERASE 21 U/L (10-37); BLOOD UREA NITROGEN 28 MG/DL (7-18); BUN/CREATININE RATIO 14.8 (5.4-32.0); CALCIUM 9.5 MG/DL (8.5-10.1); CHLORIDE 102 MMOL/L (99-107); CREATININE 1.89 MG/DL (0.60-1.10); GLUCOSE 135 MG/DL (70-104); MAGNESIUM 2.4 MG/DL (1.5-2.4); PHOSPHORUS 4.1 MG/DL (2.3-4.5); POTASSIUM 3.2 MMOL/L (3.5-5.1); SODIUM 141 MMOL/L (135-145); TOTAL CARBON DIOXIDE 33.4 MMOL/L (24-32); TOTAL PROTEIN 7.2 G/DL (6.4-8.2); eGFR 38 ML/MIN
[2019-11-14] MEDS: POTASSIUM BICARB 20meq eff tab 20 MEQ TABLET.EFF OGT PRN (05:01)
--- NOTE | 2019-11-14 06:30 | NUR ---
Patient in room CICU 2008. I have received report from Tierra HERNANDEZ and had the opportunity to ask questions and assume patient care. Patient in bed with eyes closed, sating 100% on ventilator settings of mode CPAP fio2 30% peep of 5, francis and rectal tube to gravity, vital signs stable no signs or symptoms of distress will continue to monitor
--- NOTE | 2019-11-14 06:33 | NUR ---
Problems reprioritized. Patient report given, questions answered & plan of care reviewed with Kaitlin HERNANDEZ.
[2019-11-14] MEDS: K, MAG and/or Phos replacement - Verify level? MC SCH (08:00)
[2019-11-14] MEDS: pantoprazole 40 MG vial IV SCH (08:23)
[2019-11-14] MEDS: enoxaparin 40mg/0.4ml syringe SUBCUT SCH ×2 (08:23→20:00)
[2019-11-14] MEDS: furosemide 10 MG/1 ML 10ml inj IV SCH ×2 (08:24→20:00)
[2019-11-14] MEDS: amLODIPine 5mg tablet OGT SCH (08:27)
[2019-11-14] MEDS: carvedilol 6.25mg tablet OGT SCH ×2 (08:28→19:59)
[2019-11-14] MEDS: aspirin 81mg tab.chew OGT SCH (08:28)
[2019-11-14] MEDS: FENTANYL-0.9 % NACL/PF 100 ML IV PRN (12:12)
--- NOTE | 2019-11-14 18:24 | NUR ---
Problems reprioritized. Patient report given, questions answered & plan of care reviewed with Tierra HERNANDEZ.
--- NOTE | 2019-11-14 18:29 | NUR ---
Patient in room CICU 2008. I have received report from Kaitlin HERNANDEZ and had the opportunity to ask questions and assume patient care. Patient intubated and lightly sedated. Oyxgen saturation at 98% on 30% FIO2 with ventilator on spontaneous mode. Patient opening eyes spontaneously and moving all extremities, but anxious and not following commands. Will continue to monitor patient closely.
[2019-11-15] VITALS (23 sets, daily range): BP systolic 85–161; BP diastolic 55–110
[2019-11-15] MEDS: piperacillin/tazo 3.375gm/50ml 50 ML IV SCH ×3 (00:45→15:35)
[2019-11-15] MEDS: mineral oil/petrolatum ophthal oint EACHEYE SCH ×4 (02:16→20:00)
[2019-11-15] MEDS: erythromycin base 250mg tablet PO SCH ×4 (02:16→20:00)
[2019-11-15 02:18] LABS: BASOPHILS # (AUTO) 0.1 X10'3 (0-0.2); BASOPHILS % (AUTO) 1.1 % (0-1); EOSINOPHILS # (AUTO) 0.1 X10'3 (0-0.9); EOSINOPHILS % (AUTO) 1.5 % (0-6); HEMOGLOBIN 14.5 g/dl (14.0-17.9); LYMPHOCYTES # (AUTO) 1.1 X10'3 (1.1-4.8); LYMPHOCYTES % (AUTO) 14.6 % (21-51); MEAN CORPUSCULAR HEMOGLOBIN 34.1 PG (27.0-31.0); MEAN CORPUSCULAR HGB CONC 34.4 g/dL (33.0-36.5); MEAN CORPUSCULAR VOLUME 99.2 FL (78-98); MEAN PLATELET VOLUME 8.4 FL (7.4-10.4); MONOCYTES # (AUTO) 0.9 X10'3 (0-0.9); MONOCYTES % (AUTO) 11.5 % (2-12); NEUTROPHILS # (AUTO) 5.4 X10'3 (1.8-7.7); NEUTROPHILS % (AUTO) 71.3 % (42-75); PLATELET COUNT 444 X10'3 (140-440); RED BLOOD COUNT 4.24 X10'6 (4.70-6.10); RED CELL DISTRIBUTION WIDTH 15.3 % (11.5-14.5); WHITE BLOOD COUNT 7.5 X10'3 (4.5-11.0)
[2019-11-15 02:28] LABS: ALANINE AMINOTRANSFERASE 29 U/L (12-78); ALBUMIN 2.5 G/DL (3.4-5.0); ALBUMIN/GLOBULIN RATIO 0.5 (1.1-1.5); ALKALINE PHOSPHATASE 81 IU/L (46-116); ANION GAP 7 (8-16); ASPARTATE AMINO TRANSFERASE 25 U/L (10-37); BILIRUBIN,TOTAL 0.9 MG/DL (0.1-1.0); BLOOD UREA NITROGEN 35 MG/DL (7-18); BUN/CREATININE RATIO 19.6 (5.4-32.0); CALCIUM 9.6 MG/DL (8.5-10.1); CHLORIDE 101 MMOL/L (99-107); CREATININE 1.79 MG/DL (0.60-1.10); GLUCOSE 125 MG/DL (70-104); MAGNESIUM 2.2 MG/DL (1.5-2.4); PHOSPHORUS 4.1 MG/DL (2.3-4.5); POTASSIUM 3.4 MMOL/L (3.5-5.1); SODIUM 139 MMOL/L (135-145); TOTAL CARBON DIOXIDE 31.5 MMOL/L (24-32); TOTAL PROTEIN 7.3 G/DL (6.4-8.2); eGFR 41 ML/MIN
[2019-11-15] MEDS: dexmedetomidin/NS 400mcg/100ml 100 ML IV SCH ×5 (03:12→18:30)
[2019-11-15] MEDS: POTASSIUM BICARB 20meq eff tab 20 MEQ TABLET.EFF OGT PRN ×3 (03:12→13:58)
[2019-11-15] MEDS: ipratropium/albuterol 3ml nebule NEB SCH ×6 (03:48→20:02)
[2019-11-15 04:50] LABS: ABG BASE EXCESS 6.5 mmol/L (-2.0-3.0); ABG HCO3 30.9 mmol/L (22.0-26.0); ABG OXYGEN SATURATION 93.3 % (95-98); ABG PCO2 (T) 45.1 mmHg (35.0-45.0); ABG PH (T) 7.457 (7.350-7.450); ABG PO2 (T) 69.1 mmHg (83-108); FCOHb 0.4 % (0.5-1.5); FMetHb 0.2 % (0.3-1.12); FO2Hb 92.7 % (94-100); PATIENT TEMPERATURE 38.1; PEEP 5 cm H2O; RESPIRATORY RATE 16 b/min; TOTAL HEMOGLOBIN 14.8 G/dl (14.0-17.9)
[2019-11-15] MEDS: FENTANYL-0.9 % NACL/PF 100 ML IV PRN (05:29)
--- NOTE | 2019-11-15 06:30 | NUR ---
Patient in room CICU 2008. I have received report from Tierra HERNANDEZ and had the opportunity to ask questions and assume patient care.
--- NOTE | 2019-11-15 06:42 | NUR ---
Problems reprioritized. Patient report given, questions answered & plan of care reviewed with Brooklyn HERNANDEZ.
[2019-11-15] MEDS: furosemide 10 MG/1 ML 10ml inj IV SCH (07:49)
[2019-11-15] MEDS: pantoprazole 40 MG vial IV SCH (07:49)
[2019-11-15] MEDS: carvedilol 6.25mg tablet OGT SCH ×2 (07:51→20:00)
[2019-11-15] MEDS: enoxaparin 40mg/0.4ml syringe SUBCUT SCH ×2 (07:51→20:35)
[2019-11-15] MEDS: amLODIPine 5mg tablet OGT SCH (07:51)
[2019-11-15] MEDS: K, MAG and/or Phos replacement - Verify level? MC SCH (07:52)
[2019-11-15] MEDS: amiodarone 200mg tablet OGT SCH (07:52)
[2019-11-15] MEDS: aspirin 81mg tab.chew OGT SCH (07:52)
[2019-11-15 09:09] LABS: HSV 1 PCR Negative (Negative); HSV 2 PCR Negative (Negative)
[2019-11-15] MEDS: midazolam 100mg in NS 100ml 100 ML IV PRN (09:21)
[2019-11-15] MEDS ORDERED: acetaminophen 325mg tablet PO PRN (12:50)
[2019-11-15] MEDS ORDERED: racepinephrine 11.25mg/0.5ml nebule NEB PRN (17:15)
[2019-11-15] MEDS ORDERED: ipratropium/albuterol 3ml nebule NEB PRN (17:15)
--- NOTE | 2019-11-15 17:17 | NUR ---
Received order to extubate patient due to following commands and passing weaning parameters. Extubated patient and placed on nasal cannula at 3 L/min with end tidal set up to ensure good ventilation. Will continue to monitor.
--- NOTE | 2019-11-15 18:40 | NUR ---
Patient in room CICU 2008. I have received report from Brooklyn HERNANDEZ, and had the opportunity to ask questions and assume patient care.
[2019-11-15] MEDS: lactobacillus rhamnosus 10,000 MMU CELLS/CAPSULE OGT SCH (20:00)
[2019-11-16] VITALS (22 sets, daily range): BP systolic 106–177; BP diastolic 65–115
[2019-11-16] MEDS: piperacillin/tazo 3.375gm/50ml 50 ML IV SCH ×2 (00:05→09:30)
[2019-11-16] MEDS: dexmedetomidin/NS 400mcg/100ml 100 ML IV SCH ×2 (00:45→07:26)
[2019-11-16] MEDS: mineral oil/petrolatum ophthal oint EACHEYE SCH ×2 (02:00→20:00)
[2019-11-16] MEDS: erythromycin base 250mg tablet PO SCH ×4 (02:00→20:02)
[2019-11-16] MEDS: ipratropium/albuterol 3ml nebule NEB SCH ×8 (02:47→21:08)
[2019-11-16 02:54] LABS: BASOPHILS # (AUTO) 0.1 X10'3 (0-0.2); BASOPHILS % (AUTO) 0.8 % (0-1); EOSINOPHILS # (AUTO) 0.1 X10'3 (0-0.9); EOSINOPHILS % (AUTO) 0.6 % (0-6); HEMATOCRIT 42.1 % (42.0-52.0); HEMOGLOBIN 14.6 g/dl (14.0-17.9); LYMPHOCYTES # (AUTO) 0.9 X10'3 (1.1-4.8); LYMPHOCYTES % (AUTO) 9.1 % (21-51); MEAN CORPUSCULAR HEMOGLOBIN 34.2 PG (27.0-31.0); MEAN CORPUSCULAR HGB CONC 34.7 g/dL (33.0-36.5); MEAN CORPUSCULAR VOLUME 98.6 FL (78-98); MONOCYTES % (AUTO) 10.1 % (2-12); NEUTROPHILS # (AUTO) 7.7 X10'3 (1.8-7.7); NEUTROPHILS % (AUTO) 79.4 % (42-75); PLATELET COUNT 423 X10'3 (140-440); RED BLOOD COUNT 4.27 X10'6 (4.70-6.10); RED CELL DISTRIBUTION WIDTH 15.6 % (11.5-14.5); WHITE BLOOD COUNT 9.7 X10'3 (4.5-11.0)
[2019-11-16 03:07] LABS: ALANINE AMINOTRANSFERASE 32 U/L (12-78); ALBUMIN 2.6 G/DL (3.4-5.0); ALBUMIN/GLOBULIN RATIO 0.5 (1.1-1.5); ALKALINE PHOSPHATASE 75 IU/L (46-116); ANION GAP 6 (8-16); ASPARTATE AMINO TRANSFERASE 25 U/L (10-37); BILIRUBIN,TOTAL 1.1 MG/DL (0.1-1.0); BLOOD UREA NITROGEN 38 MG/DL (7-18); BUN/CREATININE RATIO 22.5 (5.4-32.0); CALCIUM 9.6 MG/DL (8.5-10.1); CHLORIDE 102 MMOL/L (99-107); CREATININE 1.69 MG/DL (0.60-1.10); GLUCOSE 118 MG/DL (70-104); MAGNESIUM 2.1 MG/DL (1.5-2.4); PHOSPHORUS 3.4 MG/DL (2.3-4.5); POTASSIUM 3.6 MMOL/L (3.5-5.1); SODIUM 140 MMOL/L (135-145); TOTAL CARBON DIOXIDE 31.7 MMOL/L (24-32); TOTAL PROTEIN 7.4 G/DL (6.4-8.2); eGFR 44 ML/MIN
--- NOTE | 2019-11-16 06:30 | NUR ---
Patient in room CICU 2008. I have received report from Radha HERNANDEZ and had the opportunity to ask questions and assume patient care.
--- NOTE | 2019-11-16 06:30 | NUR ---
Patient in room CICU 2008. I have received report from Delma HERNANDEZ and had the opportunity to ask questions and assume patient care.
--- NOTE | 2019-11-16 06:48 | NUR ---
Problems reprioritized. Patient report given, questions answered & plan of care reviewed with Verenice Diane RN.
[2019-11-16] MEDS: K, MAG and/or Phos replacement - Verify level? MC SCH (08:00)
[2019-11-16] MEDS: amiodarone 200mg tablet OGT SCH (09:28)
[2019-11-16] MEDS: amLODIPine 5mg tablet OGT SCH (09:28)
[2019-11-16] MEDS: lactobacillus rhamnosus 10,000 MMU CELLS/CAPSULE OGT SCH ×3 (09:29→20:01)
[2019-11-16] MEDS: aspirin 81mg tab.chew OGT SCH (09:29)
[2019-11-16] MEDS: enoxaparin 40mg/0.4ml syringe SUBCUT SCH (09:29)
[2019-11-16] MEDS: carvedilol 6.25mg tablet OGT SCH ×2 (09:29→20:03)
[2019-11-16] MEDS: pantoprazole 40 MG vial IV SCH (09:30)
[2019-11-16] MEDS ORDERED: enoxaparin 40mg/0.4ml syringe SQ ONE (10:35)
--- NOTE | 2019-11-16 12:28 | NUR ---
Reassessment: Pt extubated yesterday. Pt s/p BSS this morning with ST recs pureed heart healthy diet with thin liquids, pending documentation of PO intake. Per [facility] note, pt with bilateral buttock blisters, not PU as stated in critical care rounds. LBM 2 with 250ml output through rectal tube per I&O. Will continue to monitor. Recommend: 1. Continue pureed heart healthy diet with thin liquids per ST recs 2. Monitor need for addition protein or ONS 3. routine bowel care 4. weight per rx Addendum: 11/16/19 at 1228 by Wing Cara AVERY Amended: Links added. Addendum: 11/16/19 at [address] I have reviewed and agree with note by Coil Machine Supervisor. Lauren Fuentes RD
--- NOTE | 2019-11-16 18:00 | NUR ---
Problems reprioritized. Patient report given, questions answered & plan of care reviewed with Renetta HERNANDEZ.
--- NOTE | 2019-11-16 18:00 | NUR ---
Problems reprioritized. Patient report given, questions answered & plan of care reviewed with Radha HERNANDEZ.
--- NOTE | 2019-11-16 18:45 | NUR ---
Patient in room CICU 2008. I have received report from Verenice Diane RN, and had the opportunity to ask questions and assume patient care.
[2019-11-16] MEDS: enoxaparin 80mg/0.8ml syringe SUBCUT SCH (20:03)
[2019-11-16] MEDS: ondansetron/PF 4mg/2ml inj IV PRN (20:11)
[2019-11-17] VITALS (24 sets, daily range): BP systolic 144–200; BP diastolic 100–141
[2019-11-17] MEDS: piperacillin/tazo 3.375gm/50ml 50 ML IV SCH (00:22)
[2019-11-17] MEDS: erythromycin base 250mg tablet PO SCH (02:00)
[2019-11-17] MEDS: mineral oil/petrolatum ophthal oint EACHEYE SCH ×4 (02:00→20:00)
[2019-11-17] MEDS: ipratropium/albuterol 3ml nebule NEB SCH ×4 (02:50→20:43)
[2019-11-17 03:09] LABS: BASOPHILS # (AUTO) 0.1 X10'3 (0-0.2); EOSINOPHILS % (AUTO) 0.4 % (0-6); LYMPHOCYTES # (AUTO) 1.2 X10'3 (1.1-4.8)
[2019-11-17 03:10] LABS: BASOPHILS % (AUTO) 0.8 % (0-1); HEMATOCRIT 42.6 % (42.0-52.0); HEMOGLOBIN 15.1 g/dl (14.0-17.9); LYMPHOCYTES % (AUTO) 11.1 % (21-51); MEAN CORPUSCULAR HGB CONC 35.3 g/dL (33.0-36.5); MEAN PLATELET VOLUME 8.5 FL (7.4-10.4); MONOCYTES # (AUTO) 0.9 X10'3 (0-0.9); MONOCYTES % (AUTO) 8.4 % (2-12); NEUTROPHILS # (AUTO) 8.5 X10'3 (1.8-7.7); NEUTROPHILS % (AUTO) 79.3 % (42-75); PLATELET COUNT 455 X10'3 (140-440); RED CELL DISTRIBUTION WIDTH 15.5 % (11.5-14.5); WHITE BLOOD COUNT 10.8 X10'3 (4.5-11.0)
[2019-11-17 03:21] LABS: ALANINE AMINOTRANSFERASE 38 U/L (12-78); ALBUMIN 2.8 G/DL (3.4-5.0); ALBUMIN/GLOBULIN RATIO 0.6 (1.1-1.5); ALKALINE PHOSPHATASE 68 IU/L (46-116); ANION GAP 9 (8-16); ASPARTATE AMINO TRANSFERASE 33 U/L (10-37); BILIRUBIN,TOTAL 1.3 MG/DL (0.1-1.0); BLOOD UREA NITROGEN 32 MG/DL (7-18); BUN/CREATININE RATIO 20.9 (5.4-32.0); CALCIUM 9.8 MG/DL (8.5-10.1); CHLORIDE 102 MMOL/L (99-107); CREATININE 1.53 MG/DL (0.60-1.10); GLUCOSE 115 MG/DL (70-104); MAGNESIUM 2.1 MG/DL (1.5-2.4); PHOSPHORUS 3.9 MG/DL (2.3-4.5); POTASSIUM 3.1 MMOL/L (3.5-5.1); SODIUM 140 MMOL/L (135-145); TOTAL CARBON DIOXIDE 29.4 MMOL/L (24-32); TOTAL PROTEIN 7.6 G/DL (6.4-8.2); eGFR 49 ML/MIN
[2019-11-17] MEDS: potassium Cl 20mEq/100mL bag 100 ML IV PRN ×4 (04:42→23:28)
--- NOTE | 2019-11-17 06:08 | NUR ---
MILADIS Daugherty notified of BP trending up, currently 200/107. Order received to give 0800 now.
--- NOTE | 2019-11-17 06:22 | NUR ---
Problems reprioritized. Patient report given, questions answered & plan of care reviewed with Kayode HERNANDEZ.
[2019-11-17] MEDS: carvedilol 6.25mg tablet OGT SCH ×2 (06:32→20:39)
[2019-11-17] MEDS: amLODIPine 5mg tablet OGT SCH (06:32)
--- NOTE | 2019-11-17 06:42 | NUR ---
Problems reprioritized. Patient report given, questions answered & plan of care reviewed with Gautam HERNANDEZ.
--- NOTE | 2019-11-17 06:56 | NUR ---
Patient in room CICU 2008. I have received report from Radha HERNANDEZ and had the opportunity to ask questions and assume patient care.
[2019-11-17] MEDS: K, MAG and/or Phos replacement - Verify level? MC SCH (08:00)
[2019-11-17] MEDS: pantoprazole 40 MG vial IV SCH (08:20)
[2019-11-17] MEDS: enoxaparin 80mg/0.8ml syringe SUBCUT SCH ×2 (08:20→20:39)
[2019-11-17] MEDS: amiodarone 200mg tablet OGT SCH (08:21)
[2019-11-17] MEDS: aspirin 81mg tab.chew OGT SCH (08:21)
[2019-11-17] MEDS: lactobacillus rhamnosus 10,000 MMU CELLS/CAPSULE OGT SCH ×2 (08:21→20:39)
[2019-11-17] MEDS: ondansetron/PF 4mg/2ml inj IV PRN ×2 (08:34→21:17)
--- NOTE | 2019-11-17 09:36 | NUR ---
Mother here to see pt. Pt confused at times. Soft speech.
[2019-11-17] MEDS: lisinopril 5mg tablet PO SCH (10:03)
[2019-11-17] MEDS: dexmedetomidin/NS 400mcg/100ml 100 ML IV SCH ×2 (10:34→17:48)
--- NOTE | 2019-11-17 11:25 | NUR ---
reassessment: Pt advanced to mechanical soft/chopped/heart healthy/thin liquids today per MANUFACTURING TECH. Pt having N/V today and unable to hold down PO meds per RN but was able to tolerate small sips of liquids during BSS. Unable to give PO zofran per RN r/t vomiting. Pt/family are requesting ONS in hopes of pt tolerating sips throughout the day; ensure enlive BIDLD added given pt nausea/vomiting today and PO 0% since extubation. 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 Pt remains confused AOx1 as well likely impacting PO in addition to current GI symptoms. Will continue to monitor for additional protein needs and PO diet tolerance s/p extubation. Recommend: 1. Continue mechanical soft/chopped/heart healthy diet with thin liquids per ST recs; encourage PO 2. Ensure Enlive BIDLD; pending MD verification prior to sending on trays 3. routine bowel care 4. anti-emetic per MD approval given nausea/vomiting today per RN 5. weight per rx Addendum: 11/17/19 at [address] Amended: Links added.
--- NOTE | 2019-11-17 17:40 | NUR ---
17:35- Pt bladder scanned with 287ml urine in bladder. Ruiz catheter removed at 12:30. Pt has no urge to void at this time. Will pass on to assembler 1st shift RN to recheck pt for urinary retention.
--- NOTE | 2019-11-17 18:10 | NUR ---
Problems reprioritized. Patient report given, questions answered & plan of care reviewed with Radha HERNANDEZ.
--- NOTE | 2019-11-17 18:23 | NUR ---
Patient in room CICU 2008. I have received report from Gautam HERNANDEZ, and had the opportunity to ask questions and assume patient care.
[2019-11-17] MEDS: acetaminophen 325mg tablet OGT PRN (20:43)
[2019-11-18] VITALS (24 sets, daily range): BP systolic 141–197; BP diastolic 81–139
[2019-11-18] MEDS: dexmedetomidin/NS 400mcg/100ml 100 ML IV SCH (01:02)
--- NOTE | 2019-11-18 01:05 | NUR ---
Ruiz cath was D/C'd on previous shift. Bladder scan performed d/t pt attempting to void in urinal twice but has been unsuccessful. Bladder scan revealed >500ml. Straight cath performed using sterile technique and yielded 560ml of urine. PT tolerated well. Will continue to monitor.
[2019-11-18] MEDS: mineral oil/petrolatum ophthal oint EACHEYE SCH (02:00)
[2019-11-18] MEDS: ipratropium/albuterol 3ml nebule NEB SCH ×4 (03:04→21:03)
[2019-11-18 03:08] LABS: BASOPHILS # (AUTO) 0.1 X10'3 (0-0.2); BASOPHILS % (AUTO) 0.6 % (0-1); EOSINOPHILS % (AUTO) 0.1 % (0-6); HEMATOCRIT 43.3 % (42.0-52.0); HEMOGLOBIN 14.8 g/dl (14.0-17.9); LYMPHOCYTES # (AUTO) 0.9 X10'3 (1.1-4.8); LYMPHOCYTES % (AUTO) 10.3 % (21-51); MEAN CORPUSCULAR HEMOGLOBIN 34.2 PG (27.0-31.0); MEAN CORPUSCULAR HGB CONC 34.2 g/dL (33.0-36.5); MEAN CORPUSCULAR VOLUME 99.9 FL (78-98); MEAN PLATELET VOLUME 8.2 FL (7.4-10.4); MONOCYTES # (AUTO) 0.9 X10'3 (0-0.9); MONOCYTES % (AUTO) 10.3 % (2-12); NEUTROPHILS # (AUTO) 7.2 X10'3 (1.8-7.7); NEUTROPHILS % (AUTO) 78.7 % (42-75); PLATELET COUNT 431 X10'3 (140-440); RED BLOOD COUNT 4.33 X10'6 (4.70-6.10); RED CELL DISTRIBUTION WIDTH 15.7 % (11.5-14.5); WHITE BLOOD COUNT 9.1 X10'3 (4.5-11.0)
[2019-11-18 03:21] LABS: ALANINE AMINOTRANSFERASE 41 U/L (12-78); ALBUMIN 2.9 G/DL (3.4-5.0); ALBUMIN/GLOBULIN RATIO 0.6 (1.1-1.5); ALKALINE PHOSPHATASE 62 IU/L (46-116); ANION GAP 10 (8-16); ASPARTATE AMINO TRANSFERASE 28 U/L (10-37); BILIRUBIN,TOTAL 1.2 MG/DL (0.1-1.0); BLOOD UREA NITROGEN 33 MG/DL (7-18); BUN/CREATININE RATIO 22.4 (5.4-32.0); CALCIUM 9.9 MG/DL (8.5-10.1); CHLORIDE 104 MMOL/L (99-107); CREATININE 1.47 MG/DL (0.60-1.10); GLUCOSE 113 MG/DL (70-104); MAGNESIUM 2.2 MG/DL (1.5-2.4); PHOSPHORUS 3.5 MG/DL (2.3-4.5); POTASSIUM 3.2 MMOL/L (3.5-5.1); SODIUM 142 MMOL/L (135-145); TOTAL CARBON DIOXIDE 27.6 MMOL/L (24-32); TOTAL PROTEIN 7.8 G/DL (6.4-8.2); eGFR 51 ML/MIN
[2019-11-18] MEDS: potassium Cl 20mEq/100mL bag 100 ML IV PRN ×2 (03:27→04:33)
--- NOTE | 2019-11-18 06:35 | NUR ---
Problems reprioritized. Patient report given, questions answered & plan of care reviewed with Mandy HERNANDEZ.
[2019-11-18] MEDS: K, MAG and/or Phos replacement - Verify level? MC SCH (08:00)
[2019-11-18] MEDS: lisinopril 5mg tablet PO SCH (08:09)
[2019-11-18] MEDS: lactobacillus rhamnosus 10,000 MMU CELLS/CAPSULE OGT SCH ×2 (08:09→20:33)
[2019-11-18] MEDS: carvedilol 6.25mg tablet OGT SCH (08:09)
[2019-11-18] MEDS: pantoprazole 40 MG vial IV SCH (08:12)
[2019-11-18] MEDS: amiodarone 200mg tablet OGT SCH (08:12)
[2019-11-18] MEDS: enoxaparin 80mg/0.8ml syringe SUBCUT SCH ×2 (08:13→20:34)
[2019-11-18] MEDS: aspirin 81mg tab.chew OGT SCH (08:13)
[2019-11-18] MEDS: lisinopril 10 MG tablet PO SCH (10:45)
[2019-11-18] MEDS ORDERED: carvedilol 6.25mg tablet OGT ONE (11:35)
--- NOTE | 2019-11-18 11:40 | NUR ---
TF consult: Pt remains extubated, A/O x 1 and confused. Pt with 0% PO intake since diet advancement not meeting nutrient needs despite receiving assistance with meals. Corpak placement has been ordered. TF recommendations below for once Corpak has been placed and confirmed in appropriate location. PO diet has been d/c'ed. Pt would benefit from f/u BSS once PO diet to be advanced. Pt continues with minimal stool output, documented with 190 mL stool output 11/17 per I&O. Will continue to follow closely. Recommend: 1. Once Corpak placed and okay to use, continuous TF using [employer] 1.2 with goal rate of 80 mL/hr to provide: 1920 mL total volume/day, 2304 kcal, 107 g protein, and 1549 mL water 2. Once TF, Additional 200 mL water flush Q4H; monitor hydration status and need for water flush adjustments 3. Prealbumin q /; daily weights 4. PO diet advancement per ST recs; recommend f/u BSS 5. Monitor need for ONS with PO diet advancement 6. routine bowel care 7. anti-emetic per MD approval given nausea/vomiting Addendum: 11/18/19 at [address] Amended: Links added.
--- NOTE | 2019-11-18 18:28 | NUR ---
Patient in room CICU 2008. I have received report from AAMIR HERNANDEZ and had the opportunity to ask questions and assume patient care.
[2019-11-18] MEDS: carVEDilol 12.5mg tablet OGT SCH (20:33)
[2019-11-19] VITALS (34 sets, daily range): BP systolic 98–194; BP diastolic 55–132
[2019-11-19] MEDS ORDERED: atropine 0.1mg/ml 10ml syringe ONE (01:43)
[2019-11-19 02:57] LABS: BASOPHILS # (AUTO) 0.1 X10'3 (0-0.2); BASOPHILS % (AUTO) 0.6 % (0-1); EOSINOPHILS % (AUTO) 0.1 % (0-6); HEMATOCRIT 40.3 % (42.0-52.0); HEMOGLOBIN 13.7 g/dl (14.0-17.9); LYMPHOCYTES # (AUTO) 1.1 X10'3 (1.1-4.8); LYMPHOCYTES % (AUTO) 9.7 % (21-51); MEAN CORPUSCULAR HEMOGLOBIN 33.9 PG (27.0-31.0); MEAN CORPUSCULAR HGB CONC 34.1 g/dL (33.0-36.5); MEAN CORPUSCULAR VOLUME 99.3 FL (78-98); MEAN PLATELET VOLUME 8.6 FL (7.4-10.4); MONOCYTES % (AUTO) 8.7 % (2-12); NEUTROPHILS # (AUTO) 8.9 X10'3 (1.8-7.7); NEUTROPHILS % (AUTO) 80.9 % (42-75); PLATELET COUNT 387 X10'3 (140-440); RED BLOOD COUNT 4.06 X10'6 (4.70-6.10); RED CELL DISTRIBUTION WIDTH 15.5 % (11.5-14.5)
[2019-11-19 03:16] LABS: ALANINE AMINOTRANSFERASE 41 U/L (12-78); ALBUMIN 2.8 G/DL (3.4-5.0); ALBUMIN/GLOBULIN RATIO 0.7 (1.1-1.5); ALKALINE PHOSPHATASE 55 IU/L (46-116); ANION GAP 11 (8-16); ASPARTATE AMINO TRANSFERASE 29 U/L (10-37); BILIRUBIN,TOTAL 1.1 MG/DL (0.1-1.0); CALCIUM 9.5 MG/DL (8.5-10.1); CHLORIDE 105 MMOL/L (99-107); CREATININE 1.39 MG/DL (0.60-1.10); GLUCOSE 113 MG/DL (70-104); PHOSPHORUS 3.4 MG/DL (2.3-4.5); SODIUM 142 MMOL/L (135-145); TOTAL CARBON DIOXIDE 26.4 MMOL/L (24-32); TOTAL PROTEIN 7.1 G/DL (6.4-8.2); eGFR 55 ML/MIN
[2019-11-19 03:17] LABS: BLOOD UREA NITROGEN 34 MG/DL (7-18); BUN/CREATININE RATIO 24.5 (5.4-32.0)
[2019-11-19 03:19] LABS: POTASSIUM 2.9 MMOL/L (3.5-5.1)
[2019-11-19] MEDS: potassium Cl 20mEq/100mL bag 100 ML IV PRN ×7 (03:22→21:07)
[2019-11-19] MEDS: ipratropium/albuterol 3ml nebule NEB SCH ×4 (03:53→21:19)
--- NOTE | 2019-11-19 06:07 | NUR ---
pt K 2.9, replaced 3 bags 20meq KCL and will endorse day shift to finish last bag
--- NOTE | 2019-11-19 06:32 | NUR ---
Patient in room CICU 2009. I have received report from MARY Landin and had the opportunity to ask questions and assume patient care.
--- NOTE | 2019-11-19 06:32 | NUR ---
Problems reprioritized. Patient report given, questions answered & plan of care reviewed with CATE HERNANDEZ.
[2019-11-19] MEDS: K, MAG and/or Phos replacement - Verify level? MC SCH (08:16)
[2019-11-19] MEDS: carVEDilol 12.5mg tablet OGT SCH (08:17)
[2019-11-19] MEDS: lisinopril 10 MG tablet PO SCH (08:17)
[2019-11-19] MEDS: lactobacillus rhamnosus 10,000 MMU CELLS/CAPSULE OGT SCH ×2 (08:17→19:42)
[2019-11-19] MEDS: aspirin 81mg tab.chew OGT SCH (08:17)
[2019-11-19] MEDS: pantoprazole 40 MG vial IV SCH (08:17)
[2019-11-19] MEDS: enoxaparin 80mg/0.8ml syringe SUBCUT SCH ×2 (08:18→19:30)
[2019-11-19] MEDS ORDERED: nitroGLYCERIN 0.4mg SUBLingual tab SL PRN (08:40)
[2019-11-19] MEDS ORDERED: metoprolol tartrate 1mg/ml inj IV PRN (08:40)
[2019-11-19] MEDS ORDERED: aminophylline 250mg/10ml inj. IV PRN (08:40)
[2019-11-19] MEDS ORDERED: regadenoson 0.4mg/5ml syringe IV PRN (08:40)
[2019-11-19] MEDS: lisinopril 20mg tablet PO SCH (09:55)
[2019-11-19] MEDS: carVEDilol 12.5mg tablet PO SCH ×2 (17:53→19:32)
--- NOTE | 2019-11-19 18:20 | NUR ---
Problems reprioritized. Patient report given, questions answered & plan of care reviewed with MARY Rdier.
[2019-11-19] MEDS: acetaminophen 325mg tablet OGT PRN (19:32)
--- NOTE | 2019-11-19 21:57 | NUR ---
per report from Day Shift RN at shift change, he straight cathed pt at about 1700 and got 600 out.
[2019-11-20] VITALS (23 sets, daily range): BP systolic 114–189; BP diastolic 79–118
[2019-11-20 03:13] LABS: BASOPHILS # (AUTO) 0.1 X10'3 (0-0.2); BASOPHILS % (AUTO) 0.5 % (0-1); EOSINOPHILS % (AUTO) 0.4 % (0-6); HEMATOCRIT 35.7 % (42.0-52.0); LYMPHOCYTES # (AUTO) 1.2 X10'3 (1.1-4.8); LYMPHOCYTES % (AUTO) 10.5 % (21-51); MEAN CORPUSCULAR HEMOGLOBIN 33.1 PG (27.0-31.0); MEAN CORPUSCULAR HGB CONC 33.7 g/dL (33.0-36.5); MEAN CORPUSCULAR VOLUME 98.3 FL (78-98); MEAN PLATELET VOLUME 8.6 FL (7.4-10.4); MONOCYTES # (AUTO) 1.2 X10'3 (0-0.9); MONOCYTES % (AUTO) 10.1 % (2-12); NEUTROPHILS % (AUTO) 78.5 % (42-75); PLATELET COUNT 329 X10'3 (140-440); RED BLOOD COUNT 3.63 X10'6 (4.70-6.10); RED CELL DISTRIBUTION WIDTH 15.4 % (11.5-14.5); WHITE BLOOD COUNT 11.5 X10'3 (4.5-11.0)
[2019-11-20] MEDS: ipratropium/albuterol 3ml nebule NEB SCH ×4 (03:26→21:42)
[2019-11-20 03:34] LABS: ALANINE AMINOTRANSFERASE 38 U/L (12-78); ALBUMIN 2.7 G/DL (3.4-5.0); ALBUMIN/GLOBULIN RATIO 0.7 (1.1-1.5); ALKALINE PHOSPHATASE 51 IU/L (46-116); ANION GAP 7 (8-16); ASPARTATE AMINO TRANSFERASE 27 U/L (10-37); BILIRUBIN,TOTAL 1.3 MG/DL (0.1-1.0); BLOOD UREA NITROGEN 28 MG/DL (7-18); BUN/CREATININE RATIO 23.9 (5.4-32.0); CHLORIDE 105 MMOL/L (99-107); CREATININE 1.17 MG/DL (0.60-1.10); GLUCOSE 98 MG/DL (70-104); MAGNESIUM 1.9 MG/DL (1.5-2.4); PHOSPHORUS 2.8 MG/DL (2.3-4.5); POTASSIUM 3.4 MMOL/L (3.5-5.1); SODIUM 139 MMOL/L (135-145); TOTAL CARBON DIOXIDE 26.7 MMOL/L (24-32); TOTAL PROTEIN 6.5 G/DL (6.4-8.2); eGFR 67 ML/MIN
--- NOTE | 2019-11-20 04:58 | NUR ---
bladder scan showed 567, pt felt like he needed to void but was unable to void in urinal. straight cath, 600 out
--- NOTE | 2019-11-20 05:15 | NUR ---
pt managed to eat 1/2 turkey sandwich throughout the night
--- NOTE | 2019-11-20 06:23 | NUR ---
Problems reprioritized. Patient report given, questions answered & plan of care reviewed with Mandy HERNANDEZ.
[2019-11-20] MEDS: pantoprazole 40 MG vial IV SCH (08:16)
[2019-11-20] MEDS: carVEDilol 12.5mg tablet PO SCH ×2 (08:17→20:27)
[2019-11-20] MEDS: aspirin 81mg tab.chew OGT SCH (08:17)
[2019-11-20] MEDS: lactobacillus rhamnosus 10,000 MMU CELLS/CAPSULE OGT SCH ×2 (08:17→20:28)
[2019-11-20] MEDS: lisinopril 20mg tablet PO SCH (08:18)
[2019-11-20] MEDS: K, MAG and/or Phos replacement - Verify level? MC SCH (08:19)
[2019-11-20] MEDS: enoxaparin 80mg/0.8ml syringe SUBCUT SCH ×2 (08:20→20:28)
[2019-11-20] MEDS: potassium Cl 20mEq/100mL bag 100 ML IV PRN (08:36)
[2019-11-20 15:58] LABS: C DIFF ANTIGEN NEGATIVE (NEGATIVE); C DIFF SPECIMEN=DIARRHEA? ACCEPTABLE; C DIFFICILE TOXINS A&B NEGATIVE (Neg)
--- NOTE | 2019-11-20 18:29 | NUR ---
Patient in room CICU 2008. I have received report from Sally HERNANDEZ and had the opportunity to ask questions and assume patient care.
--- NOTE | 2019-11-20 21:12 | NUR ---
Report called to Jolene HERNANDEZ receiving nurse. Transferred via ICU bed with Tele#[id number] No belongings . Special Issues communicated to receiving nurse.
--- NOTE | 2019-11-20 21:20 | NUR ---
Received report from Denae HERNANDEZ from ICU. Received patient via [employer]. Vitals 149/102, 83, 16, 99.1., patient is asymptomatic. Transferred to bed by sliding board. No oxygen, 02 sat at 99 RA. A&Ox2, poor historian. Will notify MD of High BP.
[2019-11-21] VITALS: BP 159/98
[2019-11-21] MEDS ORDERED: carVEDilol 12.5mg tablet PO ONE (02:50)
[2019-11-21] MEDS: ipratropium/albuterol 3ml nebule NEB SCH (03:28)
--- NOTE | 2019-11-21 06:50 | NUR ---
Problems reprioritized. Patient report given, questions answered & plan of care reviewed with Christina HERNANDEZ
[2019-11-21 08:00] VITALS: BP 157/104
[2019-11-21] MEDS: pantoprazole 40 MG vial IV SCH (08:00)
[2019-11-21] MEDS: enoxaparin 80mg/0.8ml syringe SUBCUT SCH (08:00)
[2019-11-21] MEDS: K, MAG and/or Phos replacement - Verify level? MC SCH (08:00)
[2019-11-21] MEDS: lactobacillus rhamnosus 10,000 MMU CELLS/CAPSULE OGT SCH (08:13)
[2019-11-21] MEDS: lisinopril 20mg tablet PO SCH (08:14)
[2019-11-21] MEDS: carVEDilol 12.5mg tablet PO SCH (08:14)
[2019-11-21] MEDS: aspirin 81mg tab.chew OGT SCH (08:15)
[2019-11-21 09:00] VITALS: BP 138/92
[2019-11-21 11:00] VITALS: BP 162/105
== END 2019-11-21 11:34 | DRG 130 ==
LOC: ER 21:55 → ED HOLD 10-27 00:47 → CICU 2S 10-27 03:14 → SUR 3N 11-20 22:17
PROVIDERS: ADMIT Internal Medicine Critical Care Medicine; ATTEND Internal Medicine Critical Care Medicine
PROC: 5A1955Z Respiratory Ventilation, Greater than 96 Consecutive Hours (ICD-10-PCS; principal; 2019-10-27)
PROC: 3E04317 Introduction of Other Thrombolytic into Central Vein, Percutaneous Approach (ICD-10-PCS; 2019-10-27)
PROC: B32T1ZZ Computerized Tomography (CT Scan) of Left Pulmonary Artery using Low Osmolar Contrast (ICD-10-PCS; 2019-11-06)
PROC: B3201ZZ Computerized Tomography (CT Scan) of Thoracic Aorta using Low Osmolar Contrast (ICD-10-PCS; 2019-11-06)
PROC: B32S1ZZ Computerized Tomography (CT Scan) of Right Pulmonary Artery using Low Osmolar Contrast (ICD-10-PCS; 2019-11-06)
PROC: 4A10X4Z Monitoring of Central Nervous Electrical Activity, External Approach (ICD-10-PCS; 2019-11-06)
PROC: 02HV33Z Insertion of Infusion Device into Superior Vena Cava, Percutaneous Approach (ICD-10-PCS; 2019-11-08)
PROC: B548ZZA Ultrasonography of Superior Vena Cava, Guidance (ICD-10-PCS; 2019-11-08)
PROC: 4A02XM4 Measurement of Cardiac Total Activity, External Approach (ICD-10-PCS; 2019-11-19)
PROC: 3E033HZ Introduction of Radioactive Substance into Peripheral Vein, Percutaneous Approach (ICD-10-PCS; 2019-11-19)
DX: J96.00 Acute respiratory failure, unspecified whether with hypoxia or hypercapnia (principal); I21.4 Non-ST elevation (NSTEMI) myocardial infarction; I26.99 Other pulmonary embolism without acute cor pulmonale; I50.21 Acute systolic (congestive) heart failure; R57.0 Cardiogenic shock; J15.5 Pneumonia due to Escherichia coli; I13.0 Hypertensive heart and chronic kidney disease with heart failure and stage 1 through stage 4 chronic kidney disease, or unspecified chronic kidney disease; E04.9 Nontoxic goiter, unspecified; E87.2 Acidosis; G83.9 Paralytic syndrome, unspecified; I42.9 Cardiomyopathy, unspecified; I47.1 Supraventricular tachycardia; F10.10 Alcohol abuse, uncomplicated; I48.0 Paroxysmal atrial fibrillation; E87.0 Hyperosmolality and hypernatremia; I50.82 Biventricular heart failure; I51.3 Intracardiac thrombosis, not elsewhere classified; S30.810A Abrasion of lower back and pelvis, initial encounter; N17.9 Acute kidney failure, unspecified; N18.9 Chronic kidney disease, unspecified; Z16.23 Resistance to quinolones and fluoroquinolones; G89.29 Other chronic pain; M54.9 Dorsalgia, unspecified; R19.7 Diarrhea, unspecified; R74.0 Nonspecific elevation of levels of transaminase and lactic acid dehydrogenase [LDH]; Z72.0 Tobacco use; R50.2 Drug induced fever; T45.0X5A Adverse effect of antiallergic and antiemetic drugs, initial encounter; Y92.238 Other place in hospital as the place of occurrence of the external cause; E87.6 Hypokalemia
CPT/HCPCS: 36415; 36573; 36600; 70450; 71045; 71275; 76700; 76937; 78452; 80053; 80202; 80305; 80320; 81001; 82140; 82271; 82550; 82575; 82803; 82810; 82945; 82948; 83605; 83690; 83735; 83874; 83880; 84100; 84132; 84134; 84145; 84157; 84300; 84439; 84443; 84484; 85018; 85025; 85027; 85610; 85651; 85730; 86038; 86160; 87015; 87040; 87070; 87075; 87076; 87077; 87081; 87088; 87102; 87186; 87324; 87449; 87529; 87899; 89051; 92508; 92616; 93005; 93017; 93306; 93970; 94002; 94003; 94640; 94667; 94668; 94760; 95816; 96365; 96366; 97110; 97116; 97161; 97530; 99291; 99292; A9500; C9113; G0378; J0131; J0153; J0280; J0282; J0461; J0690; J0744; J1250; J1644; J1650; J1940; J2212; J2250; J2405; J2543; J2704; J2785; J2997; J3010; J3370; J3475; J3480; J3490; J7030; J7060; J7070; J8597; Q9967